=== PATIENT | male | born 1950 | race Caucasian/White ===

== ENCOUNTER 2017-02-10 16:17 | Emergency (ER) | payer MEDICARE, OTHER ==
[~2017-02-10] VITALS: Ht 170.2 cm; Wt 142.4 kg
[~2017-02-10 16:17] MED LIST: ALBU2.5V2 INH; ASPI81TA2 PO; CALC667T5 PO; LEVO300T8 PO; MAGN400T6 PO; METO50TA5 PO; NEOM28OI18 TOP; NITR0.4T28 SL; TRAM50TA4 PO
[2017-02-10 16:19] VITALS: Ht 170.2 cm; Wt 142.4 kg
--- OUTSIDE RECORDS SUMMARY | 2017-02-10 16:21 | XMS REPORT | Continuity of Care Document ---
Author Author [facility] Organization [facility] Address Unknown Phone Unavailable Support Name Relationship Address Phone CHRISTIRUBY MENDOZA Caregiver [address] [place] [address] KIZZY WATKINS MD Caregiver [address] [place] [phone] CHRISTINE CARTY MD Caregiver [address] [place] [address] DESIREE LACKEY Next Of Kin [address] [place] [address] CP Insurance Providers Payer Name Policy Number Subscriber Name Relationship Medicareadvantra Ppo [id number] Preethi Lackey 19 Self Advance Directives Directive Response Recorded Date/Time Advanced Directives Type DPOA for Healthcare 03/29/14 8:42am Ordered Resuscitation Status Full Code 02/05/14 8:42pm Resuscitation Documents on File No 03/29/14 8:42am Chief Complaint and Reason for Visit Chief Complaint DX PNEUMONIA, SEPESIS, Reason for Visit Hypoxia Sepsis Abdominal pain Pneumonia Diabetes Colon cancer Pickwickian syndrome Chronic respiratory failure Peripheral neuropathy Hypertension ASCVD (arteriosclerotic cardiovascular disease) Acute renal insufficiency Ileocolic anastomotic leak Stasis dermatitis of both legs Morbid obesity with BMI of 50.0-59.9, adult Hypothyroidism Physical debility ANTIONETTE on CPAP S/P exploratory laparotomy Dyslipidemia COPD (chronic obstructive pulmonary disease) CKD (chronic kidney disease), stage II Morbid obesity with BMI of 45.0-49.9, adult Hypokalemia Debility Problems Medical Problems Problem Onset Date Status ELEVATED LIVER ENZYMES Unknown Active ELEVATED TROPONIN Unknown Active EXACERBATION OF COPD Unknown Active Elevated levels of transaminase & lactic acid dehydrogenase Unknown Active Hypoxia Unknown Active GI bleed Unknown Active Abdominal pain Unknown Active Hypoxia Unknown Active Sepsis ~03/2014 Active Abdominal pain ~03/2014 Active Pneumonia ~03/2014 Active Diabetes Unknown Active Colon cancer Unknown Active Pickwickian syndrome Unknown Active Chronic respiratory failure Unknown Active Peripheral neuropathy Unknown Active Hypertension Unknown Active ASCVD (arteriosclerotic cardiovascular disease) Unknown Active Acute renal insufficiency ~03/2014 Resolved Ileocolic anastomotic leak Unknown Active Stasis dermatitis of both legs Unknown Active Morbid obesity with BMI of 50.0-59.9, adult Unknown Active Hypothyroidism Unknown Active Physical debility Unknown Active ANTIONETTE on CPAP Unknown Active Dyslipidemia Unknown Active COPD (chronic obstructive pulmonary disease) Unknown Active CKD (chronic kidney disease), stage II Unknown Active Morbid obesity with BMI of 45.0-49.9, adult Unknown Active Hypokalemia Unknown Resolved Debility Unknown Active Surgical Problems Problem Onset Date Recorded Date/Time Status S/P exploratory laparotomy Unknown 04/27/2014 9:20am Active Medications Medication Dose Route Sig Days/Qty Instructions Order Date Discontinued Date Status [Actose] 03/07/09 10/01/09 Discontinued Potassium Chloride 20 PO DAILY 06/11/10 09/13/10 Discontinued [Simvastatin] 03/07/09 10/01/09 Discontinued [Thyroid] 03/07/09 10/01/09 Discontinued Metoprolol Succinate 25 Mg PO TWICE A DAY 1.5 tabs po qd 06/11/1014/07 Discontinued [Zocor] 03/07/09 10/01/09 Discontinued Pioglitazone HCl 1 Tab PO DAILY 06/11/10 09/13/10 Discontinued Simvastatin 1 Tab PO DAILY 06/11/10 09/13/10 Discontinued Levothyroxine Sodium 300 Mcg PO DAILY 06/11/10 09/13/10 Discontinued Furosemide 1 Tab PO DAILY 06/11/10 09/13/10 Discontinued Sertraline Hcl 50 Mg PO DAILY 10/04/09 06/11/10 Discontinued Ciprofloxacin Hcl 500 Mg PO TWICE A DAY 10/04/09 06/11/10 Discontinued Clindamycin Hcl 300 Mg PO FOUR TIMES DAILY 10/04/09 06/11/10 Discontinued Lisinopril 1 Tab PO DAILY 06/11/10 09/13/10 Discontinued Sertraline Hcl 100 Mg PO DAILY 06/11/10 09/13/10 Discontinued Levothyroxine Sodium 1 Tab PO DAILY 09/13/10 01/22/11 Discontinued Citalopram Hydrobromide 1 Tab PO DAILY 09/13/10 04/11/11 Discontinued Potassium Chloride 1 Tab PO DAILY 09/13/10 04/11/11 Discontinued Nitroglycerin 1 Tab SL NEEDED 09/13/10 Active Metoprolol Succinate 200 Mg PO DAILY 09/13/10 Active Aspirin 325 Mg PO DAILY 09/13/10 Active Lisinopril 20 Mg PO DAILY 09/13/10 04/30/14 Discontinued Furosemide 40 Mg PO DAILY 09/13/10 Active Pioglitazone HCl 30 Mg PO DAILY 09/13/10 10/23/11 Discontinued Levothyroxine Sodium 50 Mcg PO DAILY 01/22/11 04/11/11 Discontinued [Trilipix 135MG] 1 Cap PO DAILY 01/22/11 Active Levothyroxine Sodium 250 Mcg PO DAILY 04/11/11 Active Citalopram Hydrobromide 40 Mg PO DAILY 04/11/11 10/23/11 Discontinued Metformin Hcl 1,000 Mg PO DAILY 10/23/11 04/30/14 Discontinued Glimepiride 4 Mg PO DAILY 10/23/11 03/03/13 Discontinued Potassium Chloride 20 Meq PO DAILY 03/29/14 04/30/14 Discontinued Hydrocodone Bit/Acetaminophen 1 Tab PO EVERY 3-4 HOURS 04/10/14 Active Social History Social History Problem Response Recorded Date/Time Smoking Status Former smoker 03/29/2014 8:52am When did patient START smoking? Started at approx. age 20. 04/10/2014 6:28am When did patient STOP smoking? 04/23/2001 04/10/2014 6:28am Chewing Tobacco Status No 03/25/2014 2:04pm Hx Substance Use No 04/10/2014 2:10am Hx Alcohol Use No 04/10/2014 2:10am Has the pt used tobacco in the last 12 months No 04/10/2014 6:28am Query Response Start Date Stop Date Smoking Status Former smoker Hospital Discharge Instructions Instructions: Care Instructions: Reason for Hospitalization: Sepsis I was in the hospital because (patient own words): "MY SURGERY I HAD" Discharge Diet: Low sodium - up to 2 quart fluid a day Discharge Activity: As tolerated, walker for assitance Follow Up Appointments: Dr Burgess next week for staple removal Dr Watkins in 1 week - Check BMP in light of meds Patient Instructions: See ostomy instuctions Condition at time of discharge: Good Care Plan Discharge Patient: Goal: Understand discharge plan Patient Instructions: see patient instructions Good Care Plan Discharge Patient: Goal: Other Understand discharge plan Patient Instructions: see patient instructions 2.If this dressing starts peeling up slightly, it may be reinforced, if it peels excessively, notify your surgeon's office. 3.You may shower with the dressing in place, but do not submerge in water 4.Do not allow water to seep under the dressing, if it should seep under, remove the dressing and notify your surgeon. Notify Physician If: Call your Surgeon if you have: 1.Chest pain, difficulty breathing, fever>100.5 degrees, chills, heart rate >100, confusion, or persistent nausea/vomitting. 2.Severe pain, swelling, redness, or warmth in either of your legs. 3.During office hours, call [phone] 4. After hours, please call [facility] at [phone], and have the chop saw operator page your Surgeon IN THE EVENT OF AN EMERGENCY, seek medical care at the nearest Emergency Room Condition at time of discharge: Good Care Plan Discharge Patient: Goal: Understand discharge plan Patient Instructions: see patient instructions Plan of Care Discharge Date 04/30/14 7:15pm Disposition 01 DISCHARGED HOME, SELF-CARE Instructions/Education Provided How to Care for Your Colostomy or Ileostomy DI for Pneumonia -- Adult Prescriptions See Medications Section Functional Status Query Response Date Recorded Physical Hygiene Self April 30, 2014 4:47pm Disabilities Visual April 30, 2014 4:47pm Devices Used Glasses April 30, 2014 4:47pm Dressing Self April 30, 2014 4:47pm Ambulation Self April 30, 2014 4:47pm Diet Self April 30, 2014 4:47pm Mental Status Alert April 30, 2014 4:47pm Disabilities Visual April 30, 2014 4:47pm Devices Used Glasses April 30, 2014 4:47pm Physical Hygiene Self April 30, 2014 4:47pm Dressing Self April 30, 2014 4:47pm Ambulation Self April 30, 2014 4:47pm Diet Self April 30, 2014 4:47pm Allergies, Adverse Reactions, Alerts Allergen Type Severity Reaction Status Last Updated No Known Drug Allergies Allergy Unknown Active 04/10/14 Immunizations Name Given Type Hx Influenza Vaccination Y Jun 2013 Historical Hx Pneumococcal Vaccination Y 2010 Historical Hx Influenza Vaccination Y Jun 2013 Historical Vital Signs Acute Vital Signs Vital Response Date/Time Temperature (Fahrenheit) 96.8 deg F (96.8 - 99.1) Temperature (Calculated Celsius) 36.13709 degrees C (36.0 - 37.3) Temperature Source Oral Pulse Rate (adult) 95 bpm (60 - 100) Respiratory Rate 20 breaths/min (10 - 20) O2 Sat by Pulse Oximetry 92 % (90 - 100) Oxygen Flow Rate 3.50 L/min Blood Pressure 123/76 mm Hg Blood Pressure Source Automatic Cuff Height 5 ft 8 in Weight 331 lb Body Mass Index 50.0 kg/m^2 Results Test Source Date Result Interp. Ref. Range Comments Acetone Level October 01, 2009 3:20pm Negative - Activated Partial Thromboplast Time July 11, 2013 7:07pm 31.9 SEC N 24-36 Alanine Aminotransferase (ALT/SGPT) April 27, 2014 4:36am 28 U/L N 21- 72 Albumin April 27, 2014 4:36am 3.5 G/DL N 3.5-5.0 Albumin/Globulin Ratio April 27, 2014 4:36am 0.9 RATIO L 1.1-2.2 Alkaline Phosphatase April 27, 2014 4:36am 139 U/L H 38-126 Anion Gap April 30, 2014 5:00am 11 MEQ/L N 5-15 Anisocytosis February 09, 2014 4:25am 1+ - Arterial Blood Base Excess April 24, 2014 3:35pm 3.7 MMOL/L H -2.0-2.0 Arterial Blood HCO3 April 24, 2014 3:35pm 29 MEQ/L H 22-26 Arterial Blood Oxygen Content March 03, 2013 10:10am 15 - Arterial Blood Oxygen Saturation April 24, 2014 3:35pm 89.0 % L 95.0- 98.0 Arterial Blood Partial Pressure CO2 April 24, 2014 3:35pm 43 MMHG N 34- 45 Arterial Blood Total CO2 April 24, 2014 3:35pm 29.8 MEQ/L H 23-27 Arterial Blood pH April 24, 2014 3:35pm 7.430 N 7.350-7.450 Arterial Blood pO2 at Patient Temp April 24, 2014 3:35pm 55 MMHG L 80- 100 Aspartate Amino Transf (AST/SGOT) April 27, 2014 4:36am 40 U/L N 17-59 B-Type Natriuretic Peptide February 03, 2011 9:30am 28 PG/ML N 15-100 BUN/Creatinine Ratio April 30, 2014 5:00am 18 RATIO N 6-26 Band Neutrophils # April 30, 2014 5:00am 1.1 T/MM3 - Band Neutrophils % April 30, 2014 5:00am 9.0 % H 0-6 Basophils # (Auto) April 30, 2014 5:00am - Basophils # (Manual) April 17, 2014 4:25am 0.1 T/MM3 N 0-0.2 Basophils % (Manual) April 17, 2014 4:25am 1.0 % N 0-2 Basophils (%) (Auto) April 30, 2014 5:00am - Blood Gas Oxygen Percent Given April 24, 2014 3:35pm 60 - Blood Gas Oxygen Saturation October 03, 2009 4:40am 80.0 % L 95.0-98.0 Is the patient on room air? NIs the patient on the ventilator? N What is the Source? (Liters or Percent) BPAP, LITERS Liters? Y How many Liters? 6 Percent oxygen? N Blood Gas Tidal Volume June 22, 2010 6:02am Not Performed 0-1200 Blood Gas Vent Rate June 22, 2010 6:02am Not Performed 0-30 Blood Urea Nitrogen April 30, 2014 5:00am 29.0 MG/DL H 9-20 C. difficile Toxin B Gene (PCR) June 19, 2010 8:58pm Negative - If Toxin A is clinically indicated, treat accordingly. Calcium Level April 30, 2014 5:00am 9.0 MG/DL N 8.4-10.2 Calculated Osmolality April 30, 2014 5:00am 264 MOSM/KG N 261-280 Carbon Dioxide Level April 30, 2014 5:00am 28 MEQ/L N 22-30 Carcinoembryonic Antigen March 29, 2014 8:39am 1.73 UG/L N 0-3.0 ADD-ON TESTING FROM THIS MORNING/[facility] Chemistry Specimen Hemolysis April 30, 2014 5:00am < 15 0-25 0-25: No Hemolysis.26-70: Slight Hemolysis - can falsely elevate K and Urine Protein. 71-285: Moderate Hemolysis - can falsely elevate K, Troponin I, CA 19-9, PTH, CSF GLucose, and Urine Protein, and can falsely decrease Phenytoin. 286-999: Gross Hemolysis - can falsely elevate K, Troponin I, CA 19-9, PTH, CSF Glucose, and Urine Protine, and can falsely decrease Phenytoin. Recommend specimen recollection. Chloride Level April 30, 2014 5:00am 95 MEQ/L L 98-107 Cholesterol Level June 13, 2010 5:15am 140 MG/DL N 132-199 Cholesterol/HDL Ratio June 13, 2010 5:15am 7.8 RATIO H 0-5.0 Conjugated Bilirubin October 23, 2011 3:20pm 0.00 MG/DL N 0.00-0.30 Corrected White Blood Count April 23, 2014 5:30am --- 04/23/14 0707 --- CWBC previously reported as: [id number] H T/MM3 4.5-11.0 Creatine Kinase MB September 15, 2010 8:50am 0.8 NG/ML N 0-3.4 Creatinine April 30, 2014 5:00am 1.6 MG/DL DH 0.8-1.5 D-Dimer July 11, 2013 7:06pm 721 NG/ML H 0-230 <224 NG/ML= PRESUMPTIVE NEGATIVE FOR PE OR DVT>224 NG/ML=ADDITIONAL EVALUATION FOR PE OR DVT RECOMMENDED Differential Total Cells Counted January 29, 2011 5:30am 100 % - EKG October 01, 2009 3:15pm Complete - Eosinophils # (Auto) April 30, 2014 5:00am - Eosinophils # (Manual) April 30, 2014 5:00am 0.2 T/MM3 N 0-0.5 Eosinophils % (Manual) April 30, 2014 5:00am 2.0 % N 0-4 Eosinophils (%) (Auto) April 30, 2014 5:00am - Ferritin February 05, 2014 7:56pm 13.8 NG/ML L 18-464 COMMENT may use blood in lab Free Thyroxine October 23, 2011 3:20pm 1.12 NG/DL N 0.78-2.19 Free Triiodothyronine October 01, 2009 3:20pm 0.81 PG/ML L 2.77-5.27 Gentamicin Level Peak April 27, 2014 2:55pm 8.9 UG/ML N 5-12 Gentamicin Level Trough April 28, 2014 2:24pm 1.1 UG/ML N 0-2 Globulin April 27, 2014 4:36am 3.9 G/DL H 2.4-3.6 Glomerular Filtration Rate Calc April 30, 2014 5:00am 44 - Glucometer April 27, 2014 5:47am 87 mg/dL N 75-110 Glucose Level April 30, 2014 5:00am 97 MG/DL N 75-110 HDL Cholesterol Direct June 13, 2010 5:15am 18 MG/DL L 40-60 Hematocrit April 30, 2014 5:00am 38.1 % L 41-53 Hemoglobin April 30, 2014 5:00am 12.0 GM/DL L 13.5-17.5 Hemoglobin A1c July 12, 2013 5:45am 5.8 % DL 6-7 <6.0 NON-DIABETIC RANGE6.0-7.0 ADA THERAPEUTIC RANGE >7.0 ACTION SUGGESTED Hypochromasia February 09, 2014 4:25am 1+ - Icterus Index April 30, 2014 5:00am < 2 0-7 Immature Granulocyte # (Auto) April 30, 2014 5:00am - Immature Granulocyte % (Auto) April 30, 2014 5:00am - Influenza Type A Antigen July 11, 2013 7:07pm Negative - Negative for Flu A protein antigen. Assay sensitivity isbetween 65-83%. A negative result does not exclude influenza virus infection. "Influenza FA" may be ordered if clinical presentation warrants confirmatory testing. Influenza Type B Antigen July 11, 2013 7:07pm Negative - Negative for Flu B protein antigen. Assay sensitivity isbetween 65-83%. A negative result does not exclude influenza virus infection. "Influenza FA" may be ordered if clinical presentation warrants confirmatory testing. Iron Level February 05, 2014 7:56pm 26 UG/DL L 49-181 COMMENT may use blood in lab LDL Cholesterol, Calculated June 13, 2010 5:15am 98.0 N 66-159 Lab Scanned Report March 29, 2014 6:57pm LAB TEST FORM REQUEST [id number] - Lactic Acid Level October 02, 2009 4:40am Send out - Large Platelets July 21, 2013 5:05am Many - Lipase April 10, 2014 2:30am 34 U/L N 23-300 Lymphocytes # (Auto) April 30, 2014 5:00am - Lymphocytes # (Manual) April 30, 2014 5:00am 3.2 T/MM3 N 1-4.8 Lymphocytes % (Manual) April 30, 2014 5:00am 26.0 % N 23-45 Lymphocytes (%) (Auto) April 30, 2014 5:00am - Magnesium Level April 27, 2014 4:36am 1.6 MG/DL N 1.6-2.3 Mean Corpuscular Hemoglobin April 30, 2014 5:00am 25.7 UUG L 26-34 Mean Corpuscular Hemoglobin Concent April 30, 2014 5:00am 31.5 GM/DL N 31-37 Mean Corpuscular Volume April 30, 2014 5:00am 81.6 UM3 N 80-100 Mean Platelet Volume April 30, 2014 5:00am 10.6 UM3 N 9.4-12.4 Metamyelocytes # April 28, 2014 4:25am 0.2 T/MM3 - Metamyelocytes % April 28, 2014 4:25am 2.0 % H 0-0 Microcytosis July 21, 2013 5:05am 1+ - Monocytes # (Auto) April 30, 2014 5:00am - Monocytes # (Manual) April 30, 2014 5:00am 0.7 T/MM3 N 0-0.8 Monocytes % (Manual) April 30, 2014 5:00am 6.0 % N 0-9.0 Monocytes (%) (Auto) April 30, 2014 5:00am - Myelocytes # July 21, 2013 5:05am 0.1 T/MM3 - Myelocytes % July 21, 2013 5:05am 1.0 % H 0-0 Myoglobin October 05, 2009 4:40am 130.6 NG/ML H 0-121 YO-Ecu-L-Type Natriuretic Peptide April 11, 2014 4:50am 1150 PG/ML H 0- 175 Rule in cut points: <50 years old=450; 50-75 years old=900; >75 years old=1800; When utilizing ProBNP rule-in cut points, adjustment for impaired renal function is typically not required. Neutrophils # (Auto) April 30, 2014 5:00am - Neutrophils # (Manual) April 30, 2014 5:00am 6.9 T/MM3 N 1.8-7.7 Neutrophils % (Manual) April 30, 2014 5:00am 56.0 % N 33-66 Neutrophils (%) (Auto) April 30, 2014 5:00am - Nucleated Red Blood Cells January 29, 2011 5:30am 2 - Oxygen Delivery Method (LAB) April 24, 2014 3:35pm Venturi mask, % - Phosphorus Level April 19, 2014 4:40am 3.0 MG/DL N 2.5-4.5 Platelet Count April 30, 2014 5:00am 266 T/MM3 N 130-400 Poikilocytosis September 13, 2010 5:44pm 4+ - Potassium Level April 30, 2014 5:00am 5.0 MEQ/L N 3.6-5 Prealbumin February 05, 2014 7:56pm 10.0 MG/DL L 17.6-36.0 COMMENT may use blood in lab Procalcitonin April 15, 2014 4:15am < 0.05 NG/ML - PCT </=0.5 ng/mL - sepsis not likely;PCT >0.5 and </=2 ng/mL - sepsis possible; PCT >2 ng/mL - sepsis likely; PCT >/=10 ng/mL - systemic inflammatory response - sepsis or septic shock highly indicated. Prothromb Time International Ratio July 11, 2013 7:07pm 1.35 H 0.86- 1.10 THERAPUTIC RANGE=2.00-3.00 FOR ANTI-THROMBOSIS THERAPUTIC RANGE=2.50- 3.50 FOR IMPLANTED VALVE RDW Standard Deviation April 30, 2014 5:00am 55.6 FL H 36.9-50.2 Reactive Lymphocytes # April 30, 2014 5:00am 0.1 T/MM3 H 0-0 Reactive Lymphocytes % April 30, 2014 5:00am 1.0 % DH 0-0 Red Blood Count April 30, 2014 5:00am 4.67 M/MM3 N 4.50-5.90 Sodium Level April 30, 2014 5:00am 134 MEQ/L N 134-144 Stomatocytes September 13, 2010 5:44pm 4+ - Stool Occult Blood September 22, 2010 8:45pm Negative - Has specimen been collected/obtained? Y Tests Not Done March 07, 2009 7:54pm Not done - COMMENT DO C&S IF INDICATEDHas specimen been collected/obtained? Y Thyroid Stimulating Hormone (TSH) April 10, 2014 2:30am 1.81 MIU/L N 0.47 -4.68 Total Bilirubin April 27, 2014 4:36am 0.40 MG/DL N 0.20-1.30 Total Creatine Kinase October 11, 2009 6:00am 143 U/L N 55-170 Total Protein April 27, 2014 4:36am 7.4 G/DL N 6.3-8.2 Total Triiodothyronine October 30, 2008 3:10pm 0.62 NG/ML L 0.97-1.69 Triglycerides Level June 13, 2010 5:15am 120 MG/DL N 40-160 Troponin I April 10, 2014 2:30am < 0.012 ng/ml 0-0.12 Turbidity April 30, 2014 5:00am < 20 0-20 U Collection Dur (Immunofixation) February 17, 2013 2:07pm Random Hr - Protein electrophoresis, Urine performed at [facility] Reference Lab, [address] [place] [id number] Damage Adjuster Bj Ware MD U Collection Volume (Immunofixation February 17, 2013 2:07pm Random mL - Unconjugated Bilirubin October 23, 2011 3:20pm 0.00 MG/DL N 0.00-1.10 Urinalysis Comment April 10, 2014 4:40am Microscopic not ind. - Has specimen been collected/obtained? Y Urine Albumin (%) February 17, 2013 2:07pm 45.8 % - Urine Pyqlf-6-Xupxmjmx February 17, 2013 2:07pm 4.5 % - Urine Ywblx-5-Vycrapyye February 17, 2013 2:07pm 12.3 % - Urine Amorphous Phosphates October 01, 2009 3:45pm Many - Has specimen been collected/obtained? Y Urine Amorphous Urates February 06, 2014 5:04am Few - Has specimen been collected/obtained? Y Urine Bacteria February 06, 2014 5:04am None seen - Has specimen been collected/obtained? Y Urine Beta Globulin February 17, 2013 2:07pm 7.2 % - Urine Bilirubin April 10, 2014 4:40am Negative - Has specimen been collected/obtained? Y Urine Blood April 10, 2014 4:40am Negative - Has specimen been collected/obtained? Y Urine Calcium Oxalate Crystals March 03, 2013 2:48pm Many - Has specimen been collected/obtained? Y Urine Collection Type April 10, 2014 4:40am Voided-not cc-midstr - Has specimen been collected/obtained? Y Urine Color April 10, 2014 4:40am Yellow - Has specimen been collected /obtained? Y Urine Comment February 17, 2013 2:07pm see below - Mild non-selective proteinuria. Urine Culture Indicated March 03, 2013 2:48pm Cult reflexed &setup - Has specimen been collected/obtained? Y Urine Fine Granular Casts October 01, 2009 3:45pm 1-3 /LPF - Has specimen been collected/obtained? Y Urine Gamma Globulin February 17, 2013 2:07pm 30.2 % - Urine Glucose (UA) April 10, 2014 4:40am Negative - Has specimen been collected/obtained? Y Urine Hyaline Casts March 03, 2013 2:48pm 0-1 /LPF - Has specimen been collected/obtained? Y Urine Ketones April 10, 2014 4:40am Negative - Has specimen been collected/obtained? Y Urine Leukocyte Esterase April 10, 2014 4:40am Negative - Has specimen been collected/obtained? Y Urine Microscopic Not Indicated October 24, 2011 2:10am Not indicated - Has specimen been collected/obtained? Y Urine Mucus February 17, 2013 2:07pm Present - Urine Myoglobin October 02, 2009 12:45pm Send out - Has specimen been collected/obtained? YWhat is the Source? [place] Urine Nitrite April 10, 2014 4:40am Negative - Has specimen been collected/obtained? Y Urine Protein April 10, 2014 4:40am Negative - Has specimen been collected/obtained? Y Urine RBC February 06, 2014 5:04am 1-3 /HPF - Has specimen been collected/ obtained? Y Urine Specific [place] April 10, 2014 4:40am 1.025 - Has specimen been collected/obtained? Y Urine Squamous Epithelial Cells February 17, 2013 2:07pm Few - Urine Total Protein February 17, 2013 2:07pm 36 mg/dL H - Protein electrophoresis, Urine performed at [facility] Reference Lab, [address] [place] [id number] Damage Adjuster Bj Ware MD Urine Total Protein Timed February 17, 2013 2:07pm Na mg/24hrs - Value may increase up to 300mg/24hour following exercise.Reported as mg/hrs collected , reference range is based on 24 hr collection. Urine Triple Phosphate Crystals March 03, 2013 2:48pm Many - Has specimen been collected/obtained? Y Urine Turbidity April 10, 2014 4:40am Clear - Has specimen been collected/obtained? Y Urine Uric Acid Crystals March 03, 2013 2:48pm Not Performed - Urine Urobilinogen April 10, 2014 4:40am 0.2 EU/DL - Has specimen been collected/obtained? Y Urine WBC March 03, 2013 2:48pm 3-5 /HPF - Has specimen been collected /obtained? Y Urine WBC Clumps March 03, 2013 2:48pm Few - Has specimen been collected/obtained? Y Urine Waxy Casts March 03, 2013 2:48pm 0-1 /LPF - Has specimen been collected/obtained? Y Urine pH April 10, 2014 4:40am 5.5 - Has specimen been collected/ obtained? Y VLDL Cholesterol June 13, 2010 5:15am 24.0 MG/DL N 0-28 Vancomycin Level Peak January 31, 2011 12:05pm 29.49 UG/ML L 30-80 Vancomycin Level Trough March 05, 2013 5:45am 28.38 UG/ML H 15-20 Venous Blood Base Excess October 01, 2009 3:20pm 9.9 MMOL/L H -2.0-2.0 Is the patient on room air? YWhat is the Source? (Liters or Percent) ROOM AIR Venous Blood HCO3 October 01, 2009 3:20pm 38 MEQ/L H 22-26 Is the patient on room air? YWhat is the Source? (Liters or Percent) ROOM AIR Venous Blood Lactate April 15, 2014 4:15am 1.0 MMOL/L N 0.6-2.2 Venous Blood Oxygen Content October 01, 2009 3:20pm Not Performed - Venous Blood Oxygen Saturation October 01, 2009 3:20pm 58.0 % - Is the patient on room air? YWhat is the Source? (Liters or Percent) ROOM AIR Venous Blood Partial Pressure CO2 October 01, 2009 3:20pm 69 MMHG H 40- 52 Is the patient on room air? YWhat is the Source? (Liters or Percent) ROOM AIR Venous Blood Partial Pressure O2 October 01, 2009 3:20pm 32 MMHG L 40- 52 Is the patient on room air? YWhat is the Source? (Liters or Percent) ROOM AIR Venous Blood Total Carbon Dioxide October 01, 2009 3:20pm 40.2 MEQ/L - Is the patient on room air? YWhat is the Source? (Liters or Percent) ROOM AIR Venous Blood pH October 01, 2009 3:20pm 7.350 N 7.31-7.41 Is the patient on room air? YWhat is the Source? (Liters or Percent) ROOM AIR Vitamin B12 Level February 05, 2014 7:56pm 447 PG/ML N 239-931 COMMENT may use blood in lab White Blood Count April 30, 2014 5:00am 12.3 T/MM3 H 4.5-11.0 Blood Culture Blood April 10, 2014 2:30am NO GROWTH AFTER 5 DAYS Gram Stain Drainage-Other January 28, 2011 10:00am Gram Stain Tracheostomy Tube March 03, 2013 10:35am Gram Stain Sputum-Endotracheal Wash April 10, 2014 3:15am Gram Stain Peritoneum April 13, 2014 6:46pm Urine Culture Urine, [place] March 03, 2013 3:24pm Gram Stain Skin March 03, 2013 11:41am Name: PREETHI LACKEY Unit #: [id number] : [id number] Sex: M Loc / Svc: MED DOS: 04/10/14 Signed Report #: [id number] DIAGNOSTIC IMAGING REPORT TYPE OF EXAM: CHEST 1 VIEW Dictated By: PERLA CHAU MD INDICATION: ITS.REASON: f/u CHEST 1 VIEW: Comparison: April 16, 2014 Findings: Tracheostomy tube in place. Right-sided port catheter. Lungs appear grossly stable. There may be slight improvement in aeration of the right lower lobe. No new infiltrates. No pneumothorax or significant pleural fluid. Heart size and mediastinal contours are unchanged. Impression: Slight improvement in right lower lobe infiltrate. No new consolidation. . Procedures Procedure Status Date Provider(s) INSERT TUNNELED CV CATH completed 03/29/14 SRAVANTHI BURGESS MD, FACS, CWS THER/PROPH/DIAG INJ IV PUSH completed 04/08/14 TX/PRO/DX INJ NEW DRUG ADDON completed 04/08/14 Exploratory laparotomy completed 04/13/14 SRAVANTHI BURGESS MD, FACS, CWS Encounters Encounter Location Date/Time Discharged Inpatient [facility] 04/10/14 5:59am Departed Emergency Room [facility] 04/08/14 10:19pm Registered Clinic [facility] 03/29/14 2:43pm Discharged Inpatient [facility] 02/05/14 8:40pm Recent Diagnosis Hypoxia Sepsis Abdominal pain Pneumonia Diabetes Colon cancer Pickwickian syndrome Chronic respiratory failure Peripheral neuropathy Hypertension ASCVD (arteriosclerotic cardiovascular disease) Acute renal insufficiency Ileocolic anastomotic leak Stasis dermatitis of both legs Morbid obesity with BMI of 50.0-59.9, adult Hypothyroidism Physical debility AN[place]IONETTE on CPAP Dyslipidemia COPD (chronic obstructive pulmonary disease) CKD (chronic kidney disease), stage II Morbid obesity with BMI of 45.0-49.9, adult Hypokalemia Debility
--- OUTSIDE RECORDS SUMMARY | 2017-02-10 16:22 | XMS REPORT | Continuity of Care Document ---
Author Author [facility] Organization [facility] Address Unknown Phone Unavailable Allergies Active Description Code Type Severity Reaction Onset Reported/Identified Relationship to Patient Clinical Status Yes No Known Allergies NKMA N/A N/A 02/24/2014 Yes No Known Allergies NKMA N/A N/A 02/24/2014 Medications Medication Packaging Start Date Stop Date Route Dosage Sig levothyroxine(Synthroid 200 mcg (0.2 mg) oral tablet) 1 tabs 02/24/2014 03/11/2014 Oral 200 mcg 1 tabs, Oral, Daily, 30 tabs nitroglycerin(nitroglycerin 0.4 mg sublingual tablet) 1 tabs 02/24/2014 05/21/2016 SubLingual 0.4 mg 0.4 mg=1 tabs, SubLingual, q5min, x 3 doses not to exceed 3 doses/15 min--if pain persists, seek medical attention, PRN: as needed for chest pain, 0 Refill(s) fenofibric acid(Trilipix 135 mg oral delayed release capsule) 1 caps 201303/11/2014 Oral 135 mg 1 caps, Oral, Daily, 30 caps metoprolol(Toprol-XL 100 mg oral tablet, extended release) 2 tabs 02/24/2014 06/25/2014 Oral 200 mg 2 tabs, Oral, Daily, 30 tabs furosemide(Lasix 40 mg oral tablet) 1 tabs 02/24/20142013 Oral 40 mg 1 tabs, Oral, Daily, 30 tabs metFORMIN(metFORMIN 500 mg oral tablet) 2 tabs 02/24/201407/30 Oral 1,000 mg 2 tabs, Oral, Daily, 60 tabs lisinopril(lisinopril 10 mg oral tablet) 2 tabs 02/24/201403/2014 Oral 20 mg 2 tabs, Oral, Daily, 30 tabs potassium chloride(potassium chloride 20 mEq oral tablet, extended release) 1 tabs 02/24/2014 07/30/2014 Oral 20 mEq 1 tabs, Oral, Daily, 60 tabs omeprazole(omeprazole 20 mg oral delayed release tablet) 1 tabs 02/24/2014 05/04/2014 Oral 20 mg 1 tabs, Oral, Daily HYDROcodone-acetaminophen(Harrington 5 mg-325 mg oral tablet) 1 tabs 05/04/2014 09/27/2015 Oral 1 tabs, Oral, q3hr, PRN: Pain Moderate (4-6), 0 Refill(s) levothyroxine(Synthroid 200 mcg (0.2 mg) oral tablet) 06/25/2014 08/27/2014 See Instructions, 1 tabs Oral Daily, 30 tabs fenofibric acid(Trilipix 135 mg oral delayed release capsule) 06/25/2014 09/21/2015 See Instructions, 1 caps Oral Daily, 30 caps furosemide(furosemide 40 mg oral tablet) 06/25/20142013 See Instructions, TAKE ONE TABLET BY MOUTH TWICE DAILY, 60 tabs metoprolol(metoprolol succinate 200 mg oral tablet, extended release) 1 tabs 07/30/2014 08/03/2014 Oral 200 mg 1 tabs, Oral, Daily, PRN: Hypertension/High Blood Pressure insulin lispro(insulin lispro HumaLOG sliding scale High) 07/30/2014 08/03/2014 SubCutaneous Sliding Scale High, SubCutaneous, As Indicated , PRN: Hyperglycemia/High Blood Sugar aspirin(aspirin) 1 tabs 07/30/2014 08/03/2014 Oral 81 mg 81 mg , Oral, Daily cefTRIAXone(Rocephin) 10 mL 07/30/2014 08/02/2014 IV Push 1 g 1 g , IV Push, q24hr ibuprofen(ibuprofen) 07/30/2014 09/27/2015 Oral 400 mg 400 mg, Oral, q6hr, PRN: Pain Mild (1-3), 0 Refill(s) aspirin(aspirin) 07/30/2014 09/27/2015 Oral 81 mg 81 mg, Oral , Daily, 0 Refill(s) prochlorperazine(prochlorperazine) 07/30/2014 Oral 10 mg 10 mg, Oral, q6hr, PRN: as needed for nausea/vomiting, 0 Refill(s) morphine(morphine) 0.5 mL 07/30/2014 08/03/2014 IV Push 1 mg 1 mg, IV Push, q2hr, PRN: Pain Severe (7-10) ondansetron(Zofran) 2 mL 07/30/2014 08/03/2014 IV Push 4 mg 4 mg, IV Push, q6hr, PRN: Nausea Sodium Chloride 0.9%(Sodium Chloride 0.9% 1000 mL) 1,000 mL 07/30/2014 08/02/2014 IV 80 mL/hr, IV polyethylene glycol 3350(MiraLax) 1 packets 07/30/20142013 Oral 17 g 17 g, Oral, Daily, PRN: Constipation calcium carbonate(Tums) 1 tabs 07/30/2014 08/03/2014 Oral 500 mg 500 mg, Oral, q4hr, PRN: GERD/Heartburn oxyCODONE(Roxicodone) 1 tabs 07/30/2014 08/03/2014 Oral 5 mg 5 mg , Oral, q4hr, PRN: Pain Moderate (4-6) diphenhydrAMINE(Benadryl) 1 tabs 07/30/2014 08/03/2014 Oral 25 mg 25 mg, Oral, q6hr, PRN: Pruritus/Itching acetaminophen(acetaminophen) 2 tabs 07/30/2014 08/03/2014 Oral 650 mg 650 mg, Oral, q4hr, PRN: Other (See Comment) zolpidem(Ambien) 1 tabs 07/30/2014 08/03/2014 Oral 5 mg 5 mg, Oral, Bedtime (once a day), PRN: Insomnia docusate-senna(Senokot S 50 mg-8.6 mg oral tablet) 1 tabs 07/30/2014 08/03/2014 Oral 1 tabs, Oral, Daily, PRN: Constipation ipratropium(ipratropium 500 mcg/2.5 mL inhalation solution ) 2.5 mL 07/30/2014 08/03/2014 NEB 0.5 mg 0.5 mg, 2.5 mL, NEB, q2hr (scheduled), PRN: Other (See Comment) albuterol(albuterol 5 mg/mL (0.5%) inhalation solution) 0.5 mL 07/30/2014 08/03/2014 NEB 2.5 mg 2.5 mg, 0.5 mL, NEB, q2hr (scheduled), PRN: Other (See Comment) prochlorperazine(prochlorperazine) 1 tabs 07/30/20142013 Oral 10 mg 10 mg, Oral, q6hr, PRN: Nausea or Vomiting HYDROcodone-acetaminophen(Harrington 5 mg-325 mg oral tablet) 1 tabs 07/30/2014 08/03/2014 Oral 1 tabs, Oral, q3hr, PRN: Pain Moderate (4-6) fenofibrate(fenofibrate 160 mg oral tablet) 1 tabs 07/30/2014 08/03/2014 Oral 160 mg 160 mg, 1 tabs, Oral, Daily levothyroxine(Synthroid) 2 tabs 07/30/2014 08/03/2014 Oral 200 mcg 200 mcg, Oral, Daily nitroglycerin(nitroglycerin 0.4 mg sublingual tablet) 1 tabs 07/30/2014 08/03/2014 SubLingual 0.4 mg 0.4 mg, 1 tabs, SubLingual, q5min, PRN: Angina/Chest Pain predniSONE(predniSONE) 1 tabs 08/01/2014 08/03/2014 Oral 10 mg 10 mg, Oral, Daily omeprazole(omeprazole) 1 caps 08/02/2014 08/03/2014 Oral 20 mg 20 mg, Oral, Daily heparin(heparin) 1 mL 08/02/2014 08/03/2014 SubCutaneous 5,000 units 5,000 units, SubCutaneous, q12hr (scheduled) magnesium sulfate(magnesium sulfate) 100 mL 08/02/20142013 IV Piggyback 4 g 4 g, 100 mL, 12.5 mL/hr, IV Piggyback, Once predniSONE(predniSONE 10 mg oral tablet) 1 tabs 08/03/201407/2014 Oral 10 mg 1 tabs, Oral, Daily, Follow up with Renal, 30 tabs magnesium oxide(magnesium oxide 420 mg oral tablet) 1 tabs 08/26/2014 11/12/2014 Oral 420 mg 1 tabs, Oral, BID, 60 tabs levothyroxine(Synthroid 200 mcg (0.2 mg) oral tablet) 08/27/2014 09/22/2015 See Instructions, 1 tabs Oral Daily, 30 tabs pneumococcal 13-valent conjugate vaccine(pneumococcal 13- valent conjugate vaccine) 0.5 mL 10/26/2014 10/26/2014 IntraMuscular 0.5 mL , IntraMuscular, Once levothyroxine(levothyroxine 50 mcg (0.05 mg) oral capsule) 1 caps 10/26/2014 10/26/2014 Oral 50 mcg 1 caps, Oral, Daily, 30 caps levothyroxine(levothyroxine 50 mcg (0.05 mg) oral capsule) 1 caps 10/26/2014 09/22/2015 Oral 50 mcg 1 caps, Oral, Daily, 30 caps metoprolol(metoprolol succinate 50 mg oral tablet, extended release) 1 tabs 11/12/2014 09/27/2015 Oral 50 mg 1 tabs, Oral, Daily, 30 tabs magnesium oxide(magnesium oxide 420 mg oral tablet) 11/12/2014 09/22/2015 See Instructions, 1 tabs Oral BID, 60 tabs pneumococcal 23-polyvalent vaccine(pneumococcal 23- polyvalent vaccine) 0.5 mL 09/21/2015 09/27/2015 IntraMuscular 0.5 mL, IntraMuscular , As Indicated magnesium oxide(magnesium oxide) 09/22/2015 04/12/2016 Oral 420 mg 420 mg, Oral, BID, 0 Refill(s) levothyroxine(levothyroxine) 09/22/2015 01/27/2016 Oral 250 mcg 250 mcg, Oral, Daily, 0 Refill(s) docusate(Colace) 1 caps 09/22/2015 09/22/2015 Oral 100 mg 100 mg=1 caps, Oral, BID, PRN: Other (See Comment) ondansetron(Zofran) 1 tabs 09/22/2015 09/27/2015 Oral 4 mg 4 mg=1 tabs, Oral, q6hr, PRN: Nausea glucagon(glucagon) 1 mL 09/22/2015 09/27/2015 IntraMuscular 1 mg 1 mg=1 mL, IntraMuscular, As Indicated, PRN: Hypoglycemia/Low Blood Sugar Sodium Chloride 0.9%(Sodium Chloride 0.9% 1,000 mL) 1,000 mL 09/22/2015 09/22/2015 IV 150 mL/hr, IV, Stop: 09/22/15 9:29:00 [employer] polyethylene glycol 3350(MiraLax) 1 packets 09/22/20152014 Oral 17 g 17 g=1 packets, Oral, Daily, PRN: Constipation Dextrose 50% in Water(Dextrose 50% in Water Injection) 25 mL 09/22/2015 09/27/2015 IV Push 12.5 g 12.5 g=25 mL, IV Push, q15min, PRN: Hypoglycemia/Low Blood Sugar Dextrose 10% in Water(Dextrose 10% in Water 250 mL) 250 mL 09/22/2015 09/27/2015 IV 50 mL/hr, IV acetaminophen(acetaminophen) 2 tabs 09/22/2015 09/27/2015 Oral 1,000 mg 1,000 mg=2 tabs, Oral, q6hr, PRN: Other (See Comment) docusate-senna(Senokot S 50 mg-8.6 mg oral tablet) 1 tabs 09/22/2015 09/27/2015 Oral 1 tabs, Oral, Daily, PRN: Constipation heparin(heparin) 1 mL 09/22/2015 09/27/2015 SubCutaneous 5,000 units 5,000 units=1 mL, SubCutaneous, q8hr (scheduled) piperacillin-tazobactam(Zosyn) 50 mL 09/22/2015 09/23/2015 IV Piggyback 2.25 g 2.25 g=50 mL, 100 mL/hr, IV Piggyback, q8hr (scheduled) vancomycin(vancomycin) 09/22/2015 09/22/2015 IV Piggyback 2.5 g 2.5 g, 200 mL/hr, IV Piggyback, Once HYDROcodone-acetaminophen(Harrington 5 mg-325 mg oral tablet) 1 tabs 09/22/2015 09/27/2015 Oral 1 tabs, Oral, q3hr, PRN: Pain Moderate (4-6) aspirin(aspirin) 1 tabs 09/22/2015 09/27/2015 Oral 81 mg 81 mg= 1 tabs, Oral, Daily magnesium oxide(magnesium oxide) 1 tabs 09/22/2015 09/27/2015 Oral 400 mg 400 mg=1 tabs, Oral, BID levothyroxine(levothyroxine) 2 tabs 09/22/2015 09/27/2015 Oral 250 mcg 250 mcg=2 tabs, Oral, Daily ipratropium(ipratropium 500 mcg/2.5 mL inhalation solution ) 2.5 mL 09/22/2015 09/27/2015 NEB 0.5 mg 0.5 mg=2.5 mL, NEB, q2hr, PRN: Bronchospasms albuterol(albuterol 5 mg/mL (0.5%) inhalation solution) 0.5 mL 09/22/2015 09/27/2015 NEB 2.5 mg 2.5 mg=0.5 mL, NEB, q2hr, PRN: Bronchospasms sterile water(sterile water diluent intravenous solution 850 mL + sodium bicarbonate IV additive 150 mEq) 850 mL 09/22/2015 09/22/2015 IV 200 mL/hr, IV, Stop: 09/22/15 8:35:00 [employer] sterile water(sterile water diluent intravenous solution 850 mL + sodium bicarbonate IV additive 150 mEq) 850 mL 09/22/2015 09/23/2015 IV 150 mL/hr, IV pantoprazole(pantoprazole) 1 tabs 09/22/2015 09/27/2015 Oral 40 mg 40 mg=1 tabs, Oral, Daily magnesium sulfate(magnesium sulfate) 50 mL 09/22/20152014 IV Piggyback 2 g 2 g=50 mL, 8.33 mL/hr, IV Piggyback, Once miconazole topical(miconazole 2% topical powder) 1 ernestina 09/22/2015 09/27/2015 Topical 1 ernestina, Topical, TID magnesium sulfate(magnesium sulfate) 100 mL 09/23/20152015 IV Piggyback 1 g 1 g=100 mL, 100 mL/hr, IV Piggyback, Once potassium chloride(potassium chloride 20 mEq oral tablet, extended release) 2 tabs 09/23/2015 09/23/2015 Oral 40 mEq 40 mEq=2 tabs, Oral, Once calcium acetate(calcium acetate) 2 caps 09/23/2015 09/27/2015 Oral 1,334 mg 1,334 mg=2 caps, Oral, TIDWM calcium gluconate(calcium gluconate) 20 mL 09/23/20152015 IV Piggyback 2,000 mg 2,000 mg=20 mL, 35 mL/hr, IV Piggyback, Once magnesium sulfate(magnesium sulfate) 50 mL 09/24/20152015 IV Piggyback 2 g 2 g=50 mL, 8.33 mL/hr, IV Piggyback, Once tamsulosin(tamsulosin) 1 caps 09/24/2015 09/27/2015 Oral 0.4 mg 0.4 mg=1 caps, Oral, Daily magnesium sulfate(magnesium sulfate) 50 mL 09/26/20152015 IV Piggyback 2 g 2 g=50 mL, 8.33 mL/hr, IV Piggyback, Once calcium acetate(calcium acetate 667 mg oral capsule) 2 caps 09/27/2015 Oral 1,334 mg 1,334 mg=2 caps, Oral, TIDWM, 0 Refill(s) aspirin(aspirin 81 mg oral tablet, chewable) 1 tabs 09/27/2015 Oral 81 mg 81 mg=1 tabs, Oral, Daily, 0 Refill(s) diphenoxylate-atropine(diphenoxylate-atropine 2.5 mg-0.025 mg oral tablet) 2 tabs 09/27/2015 01/23/2016 Oral 2 tabs, Oral, q4hr, PRN: Diarrhea/ Loose Stools, 0 Refill(s) ipratropium(ipratropium 500 mcg/2.5 mL inhalation solution ) 2.5 mL 09/27/2015 NEB 0.5 mg 0.5 mg=2.5 mL, NEB, TID, 0 Refill(s) miconazole topical(miconazole 2% topical powder) 1 ernestina 09/27/2015 Topical 1 ernestina, Topical, TID, 0 Refill(s) tamsulosin(tamsulosin 0.4 mg oral capsule) 1 caps 09/27/2015 Oral 0.4 mg 0.4 mg=1 caps, Oral, Daily, 0 Refill(s) pantoprazole(pantoprazole 40 mg oral delayed release tablet ) 1 tabs 09/27/2015 11/23/2015 Oral 40 mg 40 mg=1 tabs, Oral, Daily, 0 Refill(s) albuterol(albuterol 5 mg/mL (0.5%) inhalation solution) 0.5 mL 09/27/2015 05/21/2016 NEB 2.5 mg 2.5 mg=0.5 mL, NEB, TID, 0 Refill(s) HYDROcodone-acetaminophen(Harrington 5 mg-325 mg oral tablet) 1 tabs 09/27/2015 10/29/2015 Oral 1 tabs, Oral, q3hr, PRN: Pain Moderate (4-6), 30 tabs, 0 Refill(s) furosemide(Lasix) 2 mL 10/01/2015 10/01/2015 IV Push 20 mg 20 mg =2 mL, IV Push, Once acetaminophen(acetaminophen) 2 tabs 10/01/2015 10/01/2015 Oral 650 mg 650 mg=2 tabs, Oral, q4hr, PRN: Pain Mild (1-3) metoprolol(metoprolol tartrate 50 mg oral tablet) 1 tabs 11/23/2015 02/23/2016 Oral 50 mg 50 mg=1 tabs, Oral, Daily, 0 Refill(s) levothyroxine(Synthroid 200 mcg (0.2 mg) oral tablet) 01/27/2016 07/27/2016 See Instructions, Take 1/2 tab daily for 30 days, then take 1 tab daily., 45 tabs, 0 Refill(s) metoprolol(metoprolol tartrate 50 mg oral tablet) 1 tabs 02/23/2016 02/28/2016 Oral 50 mg 50 mg=1 tabs, Oral, Daily, for 90 days, 90 tabs, 0 Refill(s) magnesium oxide(magnesium oxide 420 mg oral tablet) 04/12/2016 Oral 420 mg 420 mg, Oral, BID, 180 tabs, 0 Refill(s) traMADol(traMADol 50 mg oral tablet) 1 tabs 05/21/20162015 Oral 50 mg 50 mg=1 tabs, Oral, q12hr, [employer], PRN: as needed for pain, 60 tabs, 0 Refill(s) nitroglycerin(nitroglycerin 0.4 mg sublingual tablet) 1 tabs 05/21/2016 SubLingual 0.4 mg 0.4 mg=1 tabs, SubLingual, q5min, x 3 doses not to exceed 3 doses/15 min--if pain persists, seek medical attention, PRN: as needed for chest pain, 100 tabs, 0 Refill(s) traMADol(traMADol 50 mg oral tablet) 1 tabs 07/26/2016 Oral 50 mg 50 mg=1 tabs, Oral, q12hr, [employer], PRN: as needed for pain, 60 tabs, 1 Refill(s) nystatin topical(nystatin 100,000 units/g topical ointment ) 1 ernestina 10/24/2016 Topical 1 ernestina, Topical, BID, 30 g, 1 Refill(s) fluconazole(Diflucan 100 mg oral tablet) 1 tabs 10/24/2016 Oral 100 mg 100 mg=1 tabs, Oral, Daily, 1 tabs, 0 Refill(s) Problems Date Dx Coded Attending Type Code Diagnosis Diagnosed By 10/15/2015 Jackie Vergara Final B37.2 Candidiasis of skin and nail 10/15/2015 Jackie Vergara Final E03.9 Hypothyroidism, unspecified 10/15/2015 Jackie Vergara Final E11.9 Type 2 diabetes mellitus without complications 10/15/2015 Jackie Vergara Final E66.01 Morbid (severe) obesity due to excess calories 10/15/2015 Jackie Vergara Final E66.2 Morbid (severe) obesity with alveolar hypoventilation 10/15/2015 Jackie Vergara Final E78.5 Hyperlipidemia, unspecified 10/15/2015 Jackie Vergara Final E86.0 Dehydration 10/15/2015 Jackie Vergara Final G47.33 Obstructive sleep apnea (adult) ( pediatric) 10/15/2015 Jackie Vergara Final I12.9 Hypertensive chronic kidney disease with stage 1 through stage 4 chronic ki 10/15/2015 Jackie Vergara Final I25.10 Atherosclerotic heart disease of [place] coronary artery without angina pect 10/15/2015 Jackie Vergara Final I50.9 Heart failure, unspecified 10/15/2015 Jackie Vergara Final I87.8 Other specified disorders of veins 10/15/2015 Jackie Vergara Final J44.9 Chronic obstructive pulmonary disease , unspecified 10/15/2015 Jackie Vergara Final J96.11 Chronic respiratory failure with hypoxia 10/15/2015 Jackie Vergara Final J96.12 Chronic respiratory failure with hypercapnia 10/15/2015 Jackie Vergara Final N17.0 Acute kidney failure with tubular necrosis 10/15/2015 Jackie Vergara Admitting N17.9 10/15/2015 Jackie Vergara Final N18.3 Chronic kidney disease, stage 3 ( moderate) 10/15/2015 Jackie Vergara Final N47.1 Phimosis 10/15/2015 Jackie Vergara Final R33.9 Retention of urine, unspecified 10/15/2015 Jackie Vergara Final Z93.0 Tracheostomy status Procedures Results Encounters ACCT No. Visit Date/Time Discharge Status Pt. Type Provider Facility Loc./Unit Complaint [id number] 12/17/2013 10:33:00 12/17/2013 23 :59:59 CLS Outpatient [id number] 12/03/2013 11:17:00 12/03/2013 23 :59:59 CLS Outpatient [id number] 11/16/2013 10:39:00 11/16/2013 23 :59:59 CLS Outpatient [id number] 09/01/2013 12:00:00 09/01/2013 23 :59:59 CLS Outpatient [id number] 08/31/2013 10:33:00 08/31/2013 23 :59:59 CLS Outpatient
--- OUTSIDE RECORDS SUMMARY | 2017-02-10 16:22 | XMS REPORT | Continuity of Care Document ---
Author Author [facility] Organization [facility] Address Unknown Phone Unavailable Support Name Relationship Address Phone ARMEN EMERSON MD Caregiver [address] [place] [address] [place] [phone] Unavailable SRAVANTHI BURGESS FACS, MD Caregiver [address] [place] [address] [place] [phone] Unavailable AMANDA DESIREE Next Of Kin [address], [place] [id number] Insurance Providers Guarantor Preethi Lackey Address [address] [place] [address] Email DENIED 16 Payer Medicareadvantra Ppo Policy Number [id number] Subscriber's Name Preethi Lackey Relationship 18 Self Group Number [id number] Payer [facility] Policy Number [id number] Subscriber's Name Preethi Lackey Relationship 18 Self Group Number [id number] Advance Directives Directive Response Recorded Date/Time Advanced Directives Type DPOA for Healthcare 03/29/14 8:42am Ordered Resuscitation Status Full Code 02/05/14 8:42pm Resuscitation Documents on File No 03/29/14 8:42am DPOA for Healthcare Only Yes 11/26/16 1:16pm Living Will No 11/26/16 1:16pm Problems Active Problems Medical Problem Onset Date Status ASCVD (arteriosclerotic cardiovascular disease) Unknown Chronic Abdominal pain Unknown Acute Abdominal pain ~03/2014 Acute Acute kidney injury Unknown Acute Acute renal failure (ARF) Unknown Acute Acute renal insufficiency ~03/2014 Resolved Anemia of chronic disease Unknown Chronic CKD (chronic kidney disease), stage II Unknown Chronic CKD (chronic kidney disease), stage III Unknown Chronic COPD (chronic obstructive pulmonary disease) Unknown Chronic Chronic respiratory failure Unknown Chronic Colon cancer Unknown Chronic Debility Unknown Acute Diabetes Unknown Chronic Dyslipidemia Unknown Chronic ELEVATED LIVER ENZYMES Unknown Acute ELEVATED TROPONIN Unknown Acute EXACERBATION OF COPD Unknown Acute Elevated levels of transaminase & lactic acid dehydrogenase Unknown Acute GI bleed Unknown Acute Hyperphosphatemia Unknown Acute Hypertension Unknown Chronic Hypokalemia Unknown Acute Hypomagnesemia Unknown Acute Hyponatremia Unknown Acute Hypotension Unknown Acute Hypothyroidism Unknown Chronic Hypoxia Unknown Acute Hypoxia Unknown Acute Ileocolic anastomotic leak Unknown Acute Immunosuppression Unknown Acute Intertriginous candidiasis Unknown Acute Morbid obesity with BMI of 40.0-44.9, adult Unknown Acute Morbid obesity with BMI of 45.0-49.9, adult Unknown Chronic Morbid obesity with BMI of 50.0-59.9, adult Unknown Acute ANTIONETTE on CPAP Unknown Chronic Peripheral neuropathy Unknown Chronic Physical debility Unknown Acute Pickwickian syndrome Unknown Chronic Pneumonia ~03/2014 Acute SIRS (systemic inflammatory response syndrome) Unknown Acute Sepsis ~03/2014 Acute Stasis dermatitis of both legs Unknown Chronic Surgical Problem Onset Date Status S/P exploratory laparotomy Unknown Acute Past Problems Medical Problem Onset Date 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 1 Applic Topically Daily 7 Days apply to incisions right groin daily for 7 days 11/27/16 Nitroglycerin (Nitrostat) 0.4 Mg Tab.subl 1 Tab Sublingual Every 5 Minutes X 3 as needed for Chestpain 09/13/10 Tramadol Hcl 50 Mg Tablet 50 Mg Oral Twice A Day 08/26/16 Past Home Medications Medication Directions Ordered Status Actose , 03/07/09 Discontinued Aspirin 325 Mg Tablet, 325 Mg Oral Daily 09/13/10 Discontinued Ciprofloxacin Hcl 500 Mg Tablet, 500 Mg Oral Twice A Day 10/04/09 Discontinued Citalopram Hydrobromide (Celexa) 40 Mg Tablet, 40 Mg Oral Daily 04/11/11 Discontinued Citalopram Hydrobromide (Celexa) 40 Mg Tablet, 1 Tab Oral Daily 09/13/10 Discontinued Clindamycin Hcl 300 Mg Capsule, 300 Mg Oral Four Times Daily 10/04/09 Discontinued Furosemide (Lasix) 40 Mg Tablet, 1 Tab Oral Daily 06/11/10 Discontinued Glimepiride 4 Mg Tablet, 4 Mg Oral Daily 10/23/11 Discontinued Levothyroxine Sodium 50 Mcg Tablet, 50 Mcg Oral Daily 01/22/11 Discontinued Levothyroxine Sodium 150 Mcg Tablet, 1 Tab Oral Daily 09/13/10 Discontinued Levothyroxine Sodium (Levothroid) 75 Mcg Tablet, 300 Mcg Oral Daily 06/11/10 Discontinued Lisinopril 20 Mg Tablet, 20 Mg Oral Daily 09/13/10 Discontinued Lisinopril 20 Mg Tablet, 1 Tab Oral Daily 06/11/10 Discontinued Metformin Hcl 500 Mg Tablet, 1000 Mg Oral Daily 10/23/11 Discontinued Metoprolol Succinate (Toprol Xl) 200 Mg Tab.sr.24h, 200 Mg Oral Daily Discontinued Metoprolol Succinate (Toprol Xl) 25 Mg Tab.sr.24h, 25 Mg Oral Twice A Day 11/07 Discontinued Pioglitazone Hcl (Actos) 30 Mg Tablet, 30 Mg Oral Daily 09/13/10 Discontinued Pioglitazone Hcl (Actos) 30 Mg Tablet, 1 Tab Oral Daily 06/11/10 Discontinued Potassium Chloride (Klor-Con M20) 20 Meq Tab.prt.sr, 20 Meq Oral Daily Discontinued Potassium Chloride (K-Dur) 20 Meq Tab.prt.sr, 1 Tab Oral Daily 09/13/10 Discontinued Potassium Chloride (Klor-Con M10) 10 Meq Tab.prt.sr, 20 Oral Daily 06/11/10 Discontinued Sertraline Hcl (Zoloft) 100 Mg Tablet, 100 Mg Oral Daily 06/11/10 Discontinued Sertraline Hcl (Zoloft) 50 Mg Tablet, 50 Mg Oral Daily 10/04/09 Discontinued Simvastatin (Zocor) 40 Mg Tablet, 1 Tab Oral Daily 06/11/10 Discontinued Simvastatin , 03/07/09 Discontinued Thyroid , 03/07/09 Discontinued Zocor , 03/07/09 Discontinued Social History Social History Problem Response Recorded Date/Time Onset Date Status Reason for Hospitalization COLONSCOPY, BX 11/27/2016 12:03pm Not Applicable Not Applicable Chewing Tobacco Status No 03/25/2014 2:04pm Not Applicable Not Applicable Hx Substance Use No 11/23/2016 11:04am Not Applicable Not Applicable Hx Alcohol Use No 11/23/2016 11:04am Not Applicable Not Applicable Has the pt used tobacco in the last 12 months No 11/23/2016 11:04am Not Applicable Not Applicable Quit (MM/YYYY) 04/200108/16/2014 4:07pm Not Applicable Not Applicable Tobacco Usage none 08/16/2014 4:07pm Not Applicable Not Applicable Query Response Start Date Stop Date Smoking Status Former smoker Hospital Discharge Instructions Instructions: Care Instructions: Discharge Diet: regular Discharge Activity: Do not drive, operate machinery for 24 hours after surgery or while taking pain medication. Follow Up Appointments: Follow up with Rema Moore APRN/Dr. Burgess December 11 at 1:15 Pending Lab / Results: Will be notified Expected Signs/Symptoms: tenderness in right groin will gradually subside Notify Physician If: 1. Call your surgeon if you are having problems relating to your surgery at [phone]. 2. Problems such as: Temp above 101.5 degrees You develop redness, excessive swelling of the incision, increasing pain or excessive foul smelling drainage. 3. If the office is closed, call [facility] at [phone] and have your Surgeon paged. During Business Hours:: Call your surgeon at at [phone]. After Business Hours:: If the office is closed, call [facility] at [phone] and have your Surgeon paged. Pain Management/Treatment: Follow prescriptions as prescribed Pain Scale Utilized to Educate Patient: 0-10 Pain Scale Wound/Incision Care: Riple antibiotic ointment to groing incisions daily. Nystatin powder to groin creases twice a day and coffee filters to absorb moisture Condition at time of discharge: Good Plan of Care Discharge Date 11/27/16 12:18pm Instructions/Education Provided Tracheostomy Care (GEN) Prescriptions See Medication Section Functional Status Query Response Date Recorded Assistive Devices None November 26, 2016 4:00pm Activity Limitations None November 26, 2016 4:00pm Feeding Ability Independent November 26, 2016 4:00pm Toileting Ability Assist November 26, 2016 4:00pm Grooming Ability Assist November 26, 2016 4:00pm Dressing Ability Assist November 26, 2016 4:00pm Driving Ability Dependent November 26, 2016 4:00pm Housework Ability Assist November 26, 2016 4:00pm Meal Preparation Ability Assist November 26, 2016 4:00pm Stair Climbing Ability Assist November 26, 2016 4:00pm Ability to complete ADL's impeded by No change November 26, 2016 4:00pm Cognitive/Perceptual Impairments Impaired vision November 26, 2016 4:00pm Visual Assistive Devices Glasses With patient November 26, 2016 4:00pm Allergies, Adverse Reactions, Alerts Allergen Type Severity Reaction Status Last Updated No Known Drug Allergies Allergy Unknown Active 11/26/16 Immunizations Query Response on File Recorded Date/Time Hx Influenza Vaccination No 11/23/16 11:04am Hx Pneumococcal Vaccination Y fall 201011/23/16 11:04am Hx Tetanus, Diptheria, Pertussis No 08/16/14 3:42pm Hx Influenza Vaccination No 11/23/16 11:04am Hx Tetanus Diptheria No 08/16/14 3:42pm Hx Tetanus, Diptheria, Pertussis No 08/16/14 3:42pm Hx Tetanus Toxoid Vaccination No 08/16/14 3:42pm Influenza Vaccine Hx NONE 08/26/16 1:19pm Vital Signs Acute Vital Signs Vital Response Date/Time Temperature (Fahrenheit) 95.6 deg F (96.8 - 99.1) 11/27/2016 12:11pm Temperature (Calculated Celsius) 35.14144 degrees C (36.0 - 37.3) 11/27/2016 12:11pm Temperature Source Oral 11/27/2016 12:11pm Pulse Rate (adult) 72 bpm (60 - 100) 11/27/2016 12:11pm Respiratory Rate 18 breaths/min (10 - 20) 11/27/2016 12:11pm O2 Sat by Pulse Oximetry 92 % (90 - 100) 11/27/2016 12:11pm Oxygen Delivery Method Room Air 11/27/2016 12:11pm Oxygen Delivery Method Nasal Cannula 11/26/2016 3:55pm Oxygen Flow Rate 8.00 L/min 11/27/2016 10:00am Fraction of Inspired Oxygen (FIO2) 35 % 11/26/2016 7:45pm Blood Pressure 116/69 mm Hg 11/27/2016 12:11pm Blood Pressure Source Automatic Cuff 11/27/2016 12:11pm Height (Feet) 5 feet 11/26/2016 12:58pm Height (Inches) 4.00 inches 11/26/2016 12:58pm Weight (Kilograms) 146.200 kg 11/27/2016 9:41am Body Mass Index (BMI) 55.0 11/26/2016 12:58pm Results Laboratory Results Test Name Result Units Flags Reference Collection Date/Time Result Date/ Time Comments White Blood Count 15.7 T/MM3 H 4.5-11.0 11/26/2016 1:08pm 11/26/2016 1: 37pm Red Blood Count 4.25 M/MM3 L 4.50-5.90 11/26/2016 1:08pm 11/26/2016 1: 37pm Hemoglobin 12.0 GM/DL L 13.5-17.5 11/26/2016 1:08pm 11/26/2016 1:37pm Hematocrit 38.4 % L 41-53 11/26/2016 1:08pm 11/26/2016 1:37pm Mean Corpuscular Volume 90.4 UM3 80-100 11/26/2016 1:08pm 11/26/2016 1: 37pm Mean Corpuscular Hemoglobin 28.2 UUG 26-34 11/26/2016 1:08pm 2016 1:37pm Mean Corpuscular Hemoglobin Concent 31.3 GM/DL 31-37 11/26/2016 1:08pm 11/26/2016 1:37pm RDW Standard Deviation 50.3 FL H 36.9-50.2 11/26/2016 1:08pm 11/26/2016 1:37pm Platelet Count 218 T/MM3 130-400 11/26/2016 1:08pm 11/26/2016 1:37pm Mean Platelet Volume 9.0 UM3 L 9.4-12.4 11/26/2016 1:08pm 11/26/2016 1: 37pm Neutrophils % (Manual) 74.0 % H 33-66 11/26/2016 1:08pm 11/26/2016 1: 50pm Band Neutrophils % 2.0 % 0-6 11/26/2016 1:08pm 11/26/2016 1:50pm Lymphocytes % (Manual) 22.0 % L 23-45 11/26/2016 1:08pm 11/26/2016 1: 50pm Monocytes % (Manual) 1.0 % 0-9.0 11/26/2016 1:08pm 11/26/2016 1:50pm Eosinophils % (Manual) 1.0 % 0-4 11/26/2016 1:08pm 11/26/2016 1:50pm Band Neutrophils # 0.3 T/MM3 11/26/2016 1:08pm 11/26/2016 1:50pm Absolute Neutrophils (Manual) 11.6 T/MM3 H 1.8-7.7 11/26/2016 1:08pm 02/2017 1:50pm Lymphocytes # (Manual) 3.5 T/MM3 1-4.8 11/26/2016 1:08pm 11/26/2016 1: 50pm Monocytes # (Manual) 0.2 T/MM3 0-0.8 11/26/2016 1:08pm 11/26/2016 1: 50pm Eosinophils # (Manual) 0.2 T/MM3 0-0.5 11/26/2016 1:08pm 11/26/2016 1: 50pm Nucleated Red Blood Cells 1 11/26/2016 1:08pm 11/26/2016 1:50pm Red Cell Morphology Comment NORMAL 11/26/2016 1:08pm 11/26/2016 1: 50pm Icterus Index < 2 0-7 11/26/2016 1:08pm 11/26/2016 3:02pm Chemistry Specimen Hemolysis < 15 0-25 11/26/2016 1:08pm 11/26/2016 3 :02pm 0-25: Specimen Exhibited No Hemolysis. Turbidity < 20 0-20 11/26/2016 1:08pm 11/26/2016 3:02pm Sodium Level 138 MEQ/L 134-144 11/26/2016 1:08pm 11/26/2016 3:02pm Potassium Level 4.5 MEQ/L 3.6-5 11/26/2016 1:08pm 11/26/2016 3:02pm Chloride Level 101 MEQ/L 98-107 11/26/2016 1:08pm 11/26/2016 3:02pm Carbon Dioxide Level 21 MEQ/L L 22-30 11/26/2016 1:08pm 11/26/2016 3: 02pm Anion Gap 16 MEQ/L H 5-15 11/26/2016 1:08pm 11/26/2016 3:02pm Blood Urea Nitrogen 23.0 MG/DL H 9-20 11/26/2016 1:08pm 11/26/2016 3: 02pm Creatinine 3.5 MG/DL H 0.8-1.5 11/26/2016 1:08pm 11/26/2016 3:02pm BUN/Creatinine Ratio 7 RATIO 6-26 11/26/2016 1:08pm 11/26/2016 3:02pm Glomerular Filtration Rate Calc 18 11/26/2016 1:08pm 11/26/2016 3: 02pm Glucose Level 111 MG/DL H 75-110 11/26/2016 1:08pm 11/26/2016 3:02pm Calculated Osmolality 271 MOSM/KG 261-280 11/26/2016 1:08pm 11/26/2016 3:02pm Calcium Level 9.0 MG/DL 8.4-10.2 11/26/2016 1:08pm 11/26/2016 3:02pm Total Bilirubin 0.70 MG/DL 0.20-1.30 11/26/2016 1:08pm 11/26/2016 3: 02pm Alkaline Phosphatase 130 U/L H 38-126 11/26/2016 1:08pm 11/26/2016 3: 02pm Total Protein 8.4 G/DL H 6.3-8.2 11/26/2016 1:08pm 11/26/2016 3:02pm Albumin 4.1 G/DL 3.5-5.0 11/26/2016 1:08pm 11/26/2016 3:02pm Globulin 4.3 G/DL H 2.4-3.6 11/26/2016 1:08pm 11/26/2016 3:02pm Albumin/Globulin Ratio 1.0 RATIO L 1.1-2.2 11/26/2016 1:08pm 11/26/2016 3:02pm Aspartate Amino Transf (AST/SGOT) 43 U/L 17-59 11/26/2016 1:08pm 2016 3:02pm Alanine Aminotransferase (ALT/SGPT) 53 U/L 21-72 11/26/2016 1:08pm 02/2017 3:02pm Procedures Procedure Status Date Provider(s) Colonoscopy with polypectomy and biopsy Completed 11/26/16 SRAVANTHI BURGESS MD, FACS, CWS Excision, lesion Completed 11/26/16 SRAVANTHI BURGESS MD, FACS, CWS Encounters Encounter Location Arrival/Admit Date Discharge/Depart Date Attending Provider Departed [facility] 11/26/16 12:22pm 11/27/16 12:18pm SRAVANTHI BURGESS FACS CWS MD
--- OUTSIDE RECORDS SUMMARY | 2017-02-10 16:23 | XMS REPORT | Continuity of Care Document ---
Author Author [facility] Organization [facility] Address Unknown Phone Unavailable Support Name Relationship Address Phone BENJAMÍNESTELA RODRÍGUEZ Caregiver [address] [phone] RUBY TAVAREZ MD Caregiver [address] [place] [address] [place] [address] KIZZY SOLIS MD Caregiver [address] [place] [phone] DESIREE LACKEY Next Of Kin [address] [place] [address] CP Insurance Providers Payer Name Policy Number Subscriber Name Relationship Medicareadvantra Ppo [id number] Preethi Lackey 19 Self Advance Directives Directive Response Recorded Date/Time Advanced Directives Type DPOA for Healthcare 03/29/14 8:42am Ordered Resuscitation Status Full Code 02/05/14 8:42pm Resuscitation Documents on File No 03/29/14 8:42am Chief Complaint and Reason for Visit Chief Complaint ACUTE RENAL FAILURE Reason for Visit ANTIONETTE on CPAP Hypokalemia Intertriginous candidiasis Anemia of chronic disease Immunosuppression SIRS (systemic inflammatory response syndrome) Acute kidney injury CKD (chronic kidney disease), stage III Morbid obesity with BMI of 40.0-44.9, adult Hyponatremia Acute renal failure (ARF) Hyperphosphatemia Hypomagnesemia Problems Medical Problems Problem Onset Date Status [...] of 45.0-49.9, adult Unknown Active Hypokalemia Unknown Active Debility Unknown Active Intertriginous candidiasis Unknown Active Anemia of chronic disease Unknown Active Immunosuppression Unknown Active SIRS (systemic inflammatory response syndrome) Unknown Active Acute kidney injury Unknown Active CKD (chronic kidney disease), stage III Unknown Active Morbid obesity with BMI of 40.0-44.9, adult Unknown Active Hyponatremia Unknown Active Acute renal failure (ARF) Unknown Active Hyperphosphatemia Unknown Active Hypomagnesemia Unknown Active Surgical Problems Problem Onset Date [...] Metoprolol Succinate 200 Mg PO DAILY 09/13/10 08/21/14 Discontinued Aspirin 325 Mg PO DAILY 09/13/10 08/16/14 Discontinued Lisinopril 20 Mg PO DAILY 09/13/10 04/30/14 Discontinued Pioglitazone HCl 30 Mg PO DAILY 09/13/10 10/23/11 Discontinued Levothyroxine Sodium 50 Mcg PO DAILY 01/22/11 04/11/11 Discontinued Levothyroxine Sodium 200 Mcg PO DAILY 04/11/11 Active Citalopram Hydrobromide 40 Mg PO DAILY 04/11/11 10/23/11 Discontinued Metformin Hcl 1,000 Mg PO DAILY 10/23/11 04/30/14 Discontinued Glimepiride 4 Mg PO DAILY 10/23/11 03/03/13 Discontinued Potassium Chloride 20 Meq PO DAILY 03/29/14 04/30/14 Discontinued Hydrocodone Bit/Acetaminophen 1 Tab PO NEEDED 04/10/14 Active Aspirin 1 Tab PO DAILY 08/16/14 Active Fenofibric Acid (Choline) PO DAILY 30 Qty 08/16/14 Active Prednisone 10 Mg PO DAILY 30 Qty 08/16/14 Active Metoprolol Succinate 100 Mg PO DAILY 30 Days 08/21/14 Active Psyllium Husk (with Sugar) 1 Packet PO GIVE WITH SUPPER For bulk up stool 28 Days 08/21/14 Active Magnesium Oxide 400 Mg PO DAILY 30 Days 08/21/14 Active Social History Social History Problem Response Recorded Date/Time Smoking Status Former smoker 03/29/2014 8:52am When did patient START smoking? 20 YEARS OLD 08/16/2014 3:41pm When did patient STOP smoking? 51 YEARS OLD 08/16/2014 3:41pm Chewing Tobacco Status No 03/25/2014 2:04pm Hx Substance Use No 08/16/2014 11:05am Hx Alcohol Use No 08/16/2014 11:05am Has the pt used tobacco in the last 12 months No 08/16/2014 3:41pm Query Response Start Date Stop Date Smoking Status Former smoker Hospital Discharge Instructions Discharge Medications/Orders are not finalized. Discharge Medications/Orders are not finalized. Reason for Hospitalization: Pneumonia I was in the hospital because (patient own words): : DR. PATTERSON THOUGHT HE HAD A TOUCH OF PNEUMONIA Discharge Diet: Heart Healthy Discharge Activity: As tolerated Follow Up Appointments: Dr Patterson this week for reevaluation, please call Saturday to make an appointment. Condition at time of discharge: Good Plan of Care Discharge Date 08/21/14 3:15pm Disposition 01 DISCHARGED HOME, SELF-CARE Instructions/Education Provided [facility] [place] Congestive Heart Failure Prescriptions See Medications Section Functional Status Query Response Date Recorded Physical Hygiene Self August 16, 2014 11:05am Disabilities None August 16, 2014 11:05am Devices Used Glasses Cane Walker August 16, 2014 11:05am Dressing Assist August 16, 2014 11:05am Ambulation Assist August 16, 2014 11:05am Diet Self August 16, 2014 11:05am Mental Status Alert Oriented August 17, 2014 8:58am Disabilities None August 16, 2014 11:05am Devices Used Glasses Cane Walker August 16, 2014 11:05am Physical Hygiene Self August 16, 2014 11:05am Dressing Assist August 16, 2014 11:05am Ambulation Assist August 16, 2014 11:05am Diet Self August 16, 2014 11:05am Allergies, Adverse Reactions, Alerts Allergen Type Severity Reaction Status Last Updated No Known Drug Allergies Allergy Unknown Active 04/10/14 Immunizations Name Given Type Hx Influenza Vaccination No Historical Hx Pneumococcal Vaccination Y FALL 2010 Historical Hx Tetanus, Diptheria, Pertussis No Historical Hx Influenza Vaccination No Historical Hx Tetanus Diptheria No Historical Hx Tetanus, Diptheria, Pertussis No Historical Hx Tetanus Toxoid Vaccination No Historical Vital Signs Acute Vital Signs Vital Response Date/Time Temperature (Fahrenheit) 96.6 deg F (96.8 - 99.1) Temperature (Calculated Celsius) 35.88628 degrees C (36.0 - 37.3) Temperature Source Axillary Pulse Rate (adult) 89 bpm (60 - 100) Respiratory Rate 16 breaths/min (10 - 20) O2 Sat by Pulse Oximetry 94 % (90 - 100) Height 5 ft 8 in Weight 287 lb Body Mass Index 43.0 kg/m^2 Results Test Source Date Result Interp. Ref. Range Comments Acetone Level October 01, 2009 3:20pm Negative - Activated Partial Thromboplast Time July 11, 2013 7:07pm 31.9 SEC N 24-36 Alanine Aminotransferase (ALT/SGPT) August 16, 2014 12:10pm 65 U/L N 21-72 Albumin August 16, 2014 12:10pm 4.1 G/DL N 3.5-5.0 Albumin/Globulin Ratio August 16, 2014 12:10pm 1.4 RATIO N 1.1-2.2 Alkaline Phosphatase August 16, 2014 12:10pm 121 U/L N 38-126 Anion Gap August 21, 2014 4:53am 5 MEQ/L N 5-15 Anisocytosis February 09, 2014 [...] L 80- 100 Aspartate Amino Transf (AST/SGOT) August 16, 2014 12:10pm 32 U/L N 17- 59 B-Type Natriuretic Peptide February 03, 2011 9:30am 28 PG/ML N 15-100 BUN/Creatinine Ratio August 21, 2014 4:53am 9 RATIO N 6-26 Band Neutrophils # August 21, 2014 4:53am 0.4 T/MM3 - Band Neutrophils % August 21, 2014 4:53am 3.0 % N 0-6 Basophils # (Auto) April 22, 2014 5:15am 0.0 T/MM3 N 0-0.2 Basophils # (Manual) August 18, 2014 4:41am 0.1 T/MM3 N 0-0.2 Basophils % (Manual) August 18, 2014 4:41am 1.0 % N 0-2 Basophils (%) (Auto) April 22, 2014 5:15am 0.9 % N 0-2 Blood Gas Oxygen Percent Given April 24, [...] 6:02am Not Performed 0-30 Blood Urea Nitrogen August 21, 2014 4:53am 15.0 MG/DL N 9-20 C. difficile Toxin B Gene (PCR) June 19, 2010 8:58pm Negative - If Toxin A is clinically indicated, treat accordingly. Calcium Level August 21, 2014 4:53am 8.0 MG/DL L 8.4-10.2 Calculated Osmolality August 21, 2014 4:53am 256 MOSM/KG L 261-280 Carbon Dioxide Level August 21, 2014 4:53am 26 MEQ/L N 22-30 Carcinoembryonic Antigen March 29, 2014 8:39am 1.73 UG/L N 0-3.0 ADD-ON TESTING FROM THIS MORNING/[facility] Chemistry Specimen Hemolysis August 21, 2014 4:53am < 15 0-25 0-25 : No Hemolysis.26-70: Slight Hemolysis - can falsely elevate K and Urine Protein. 71-285: Moderate Hemolysis - can falsely elevate K, Troponin I, CA 19-9, PTH, CSF GLucose, and Urine Protein, and can falsely decrease Phenytoin. 286-999: Gross Hemolysis - can falsely elevate K, Troponin I, CA 19-9, PTH, CSF Glucose, and Urine Protine, and can falsely decrease Phenytoin. Recommend specimen recollection. Chloride Level August 21, 2014 4:53am 102 MEQ/L N 98-107 Cholesterol Level June 13, 2010 5:15am 140 MG/DL N 132-199 Cholesterol/HDL Ratio June 13, 2010 5:15am 7.8 RATIO H 0-5.0 Conjugated Bilirubin October 23, 2011 3:20pm 0.00 MG/DL N 0.00-0.30 Corrected White Blood Count April 23, 2014 5:30am --- 04/23/14 0707 --- CWBC previously reported as: 1376833293.0 H T/MM3 4.5-11.0 Creatine Kinase MB September 15, 2010 8:50am 0.8 NG/ML N 0-3.4 Creatinine August 21, 2014 4:53am 1.6 MG/DL H 0.8-1.5 D-Dimer July 11, 2013 7:06pm 721 NG/ML H 0-230 <224 NG/ML= PRESUMPTIVE NEGATIVE FOR PE OR DVT>224 NG/ML=ADDITIONAL EVALUATION FOR PE OR DVT RECOMMENDED Differential Total Cells Counted January 29, 2011 5:30am 100 % - EKG October 01, 2009 3:15pm Complete - Eosinophils # (Auto) April 22, 2014 5:15am 0.2 T/MM3 N 0-0.5 Eosinophils # (Manual) August 21, 2014 4:53am 0.3 T/MM3 N 0-0.5 Eosinophils % (Manual) August 21, 2014 4:53am 2.0 % N 0-4 Eosinophils (%) (Auto) April 22, 2014 5:15am 4.8 % H 0-4 Ferritin February 05, 2014 7:56pm 13.8 NG/ML L 18-464 COMMENT may use blood in lab Free Thyroxine October 23, 2011 3:20pm 1.12 NG/DL N 0.78-2.19 Free Triiodothyronine October 01, 2009 3:20pm 0.81 PG/ML L 2.77-5.27 Gentamicin Level Peak April 27, 2014 2:55pm 8.9 UG/ML N 5-12 Gentamicin Level Trough April 28, 2014 2:24pm 1.1 UG/ML N 0-2 Globulin August 16, 2014 12:10pm 3.0 G/DL N 2.4-3.6 Glomerular Filtration Rate Calc August 21, 2014 4:53am 44 - Glucometer April 27, 2014 5:47am 87 mg/dL N 75-110 Glucose Level August 21, 2014 4:53am 72 MG/DL L 75-110 HDL Cholesterol Direct June 13, 2010 5:15am 18 MG/DL L 40-60 Hematocrit August 21, 2014 4:53am 28.0 % L 41-53 Hemoglobin August 21, 2014 4:53am 9.2 GM/DL L 13.5-17.5 Hemoglobin A1c August 16, 2014 12:10pm 5.9 % L 6-7 <6.0 NON-DIABETIC RANGE6.0-7.0 ADA THERAPEUTIC RANGE >7.0 ACTION SUGGESTED Hypochromasia February 09, 2014 4:25am 1+ - Icterus Index August 21, 2014 4:53am < 2 0-7 Immature Granulocyte # (Auto) April 22, 2014 5:15am 0.07 T/MM3 H 0.00- 0.03 Immature Granulocyte % (Auto) April 22, 2014 5:15am 1.6 % H 0.0-0.5 Influenza Type A Antigen July 11, 2013 [...] 5:15am 98.0 N 66-159 Lab Scanned Report August 09, 2014 12:08pm LAB TEST FORM REQUEST [id number] - Lactate Dehydrogenase August 09, 2014 12:00am 594 U/L N 313-618 ADD- ON TESTING/SJM Lactic Acid Level October 02, 2009 4:40am Send out - Large Platelets July 21, 2013 5:05am Many - Lipase April 10, 2014 2:30am 34 U/L N 23-300 Lymphocytes # (Auto) April 22, 2014 5:15am 1.7 T/MM3 N 1-4.8 Lymphocytes # (Manual) August 21, 2014 4:53am 4.3 T/MM3 N 1-4.8 Lymphocytes % (Manual) August 21, 2014 4:53am 30.0 % N 23-45 Lymphocytes (%) (Auto) April 22, 2014 5:15am 39.4 % N 23-45 Magnesium Level August 21, 2014 4:53am 1.0 MG/DL L 1.6-2.3 Mean Corpuscular Hemoglobin August 21, 2014 4:53am 29.7 UUG N 26-34 Mean Corpuscular Hemoglobin Concent August 21, 2014 4:53am 32.9 GM/DL N 31-37 Mean Corpuscular Volume August 21, 2014 4:53am 90.3 UM3 N 80-100 Mean Platelet Volume August 21, 2014 4:53am 9.9 UM3 N 9.4-12.4 Metamyelocytes # August 21, 2014 4:53am 0.6 T/MM3 - Metamyelocytes % August 21, 2014 4:53am 4.0 % H 0-0 Microcytosis July 21, 2013 5:05am 1+ - Monocytes # (Auto) April 22, 2014 5:15am 1.0 T/MM3 H 0-0.8 Monocytes # (Manual) August 21, 2014 4:53am 1.8 T/MM3 H 0-0.8 Monocytes % (Manual) August 21, 2014 4:53am 13.0 % H 0-9.0 Monocytes (%) (Auto) April 22, 2014 5:15am 22.4 % H 0-9.0 Myelocytes # August 20, 2014 4:19am 0.3 T/MM3 - Myelocytes % August 20, 2014 4:19am 2.0 % H 0-0 Myoglobin October 05, 2009 4:40am 130.6 NG/ML H 0-121 YB-Mdo-Y-Type Natriuretic Peptide April 11, 2014 4:50am 1150 PG/ML H 0- 175 Rule in cut points: <50 years old=450; 50-75 years old=900; >75 years old=1800; When utilizing ProBNP rule-in cut points, adjustment for impaired renal function is typically not required. Neutrophils # (Auto) April 22, 2014 5:15am 1.4 T/MM3 L 1.8-7.7 Neutrophils # (Manual) August 21, 2014 4:53am 6.8 T/MM3 N 1.8-7.7 Neutrophils % (Manual) August 21, 2014 4:53am 48.0 % N 33-66 Neutrophils (%) (Auto) April 22, 2014 5:15am 30.9 % L 33-66 Nucleated Red Blood Cells January 29, 2011 5:30am 2 - Oxygen Delivery Method (LAB) April 24, 2014 3:35pm Venturi mask, % - Phosphorus Level August 21, 2014 4:53am 2.0 MG/DL L 2.5-4.5 Platelet Count August 21, 2014 4:53am 147 T/MM3 N 130-400 Poikilocytosis September 13, 2010 5:44pm 4+ - Potassium Level August 21, 2014 4:53am 4.3 MEQ/L DN 3.6-5 Prealbumin August 16, 2014 12:10pm 22.4 MG/DL N 17.6-36.0 COMMENT blood in lab Procalcitonin August 16, 2014 1:29pm 0.25 NG/ML - PCT </=0.5 ng/mL - sepsis not likely;PCT >0.5 and </=2 ng/mL - sepsis possible; PCT >2 ng/mL - sepsis likely; PCT >/=10 ng/mL - systemic inflammatory response - sepsis or septic shock highly indicated. Prothromb Time International Ratio July 11, 2013 7:07pm 1.35 H 0.86- 1.10 THERAPUTIC RANGE=2.00-3.00 FOR ANTI-THROMBOSIS THERAPUTIC RANGE=2.50- 3.50 FOR IMPLANTED VALVE RDW Standard Deviation August 21, 2014 4:53am 58.6 FL H 36.9-50.2 Reactive Lymphocytes # August 19, 2014 4:22am 0.7 T/MM3 H 0-0 Reactive Lymphocytes % August 19, 2014 4:22am 5.0 % H 0-0 Red Blood Count August 21, 2014 4:53am 3.10 M/MM3 L 4.50-5.90 Sodium Level August 21, 2014 4:53am 133 MEQ/L L 134-144 Stomatocytes September 13, 2010 5:44pm 4+ - Stool Occult Blood September 22, 2010 8:45pm Negative - Has specimen been collected/obtained? Y Tests Not Done March 07, 2009 7:54pm Not done - COMMENT DO C&S IF INDICATEDHas specimen been collected/obtained? Y Thyroid Stimulating Hormone (TSH) August 16, 2014 12:10pm 5.83 MIU/L DH 0.47-4.68 COMMENT blood in lab Total Bilirubin August 16, 2014 12:10pm 0.50 MG/DL N 0.20-1.30 Total Creatine Kinase October 11, 2009 6:00am 143 U/L N 55-170 Total Protein August 16, 2014 12:10pm 7.1 G/DL N 6.3-8.2 Total Triiodothyronine October 30, 2008 3:10pm 0.62 NG/ML L 0.97-1.69 Triglycerides Level June 13, 2010 5:15am 120 MG/DL N 40-160 Troponin I August 16, 2014 12:10pm 0.024 ng/ml N 0-0.12 Turbidity August 21, 2014 4:53am < 20 0-20 U Collection Dur (Immunofixation) February 17, 2013 2:07pm Random Hr - Protein electrophoresis, Urine performed at [facility], [address] [place] [id number] [address] Grainer Bj Ware MD U Collection Volume (Immunofixation February 17, 2013 2:07pm Random mL - Unconjugated Bilirubin October 23, 2011 3:20pm 0.00 MG/DL N 0.00-1.10 Urinalysis Comment April 10, 2014 4:40am Microscopic not ind. - Has specimen been collected/obtained? Y Urine Albumin (%) February 17, 2013 2:07pm 45.8 % - Urine Bgwfh-2-Jgqclpxi February 17, 2013 2:07pm 4.5 % - Urine Jefzk-5-Loflntgpm February 17, 2013 2:07pm 12.3 % - Urine Amorphous Phosphates October 01, 2009 3:45pm Many - Has specimen been collected/obtained? Y Urine Amorphous Urates August 16, 2014 1:15pm Few - Has specimen been collected/obtained? Y Urine Bacteria August 16, 2014 1:15pm None seen - Has specimen been collected/obtained? Y Urine Beta Globulin February 17, 2013 2:07pm 7.2 % - Urine Bilirubin August 16, 2014 1:15pm Negative - Has specimen been collected/obtained? Y Urine Blood August 16, 2014 1:15pm Negative - Has specimen been collected/obtained? Y Urine Calcium Oxalate Crystals March 03, 2013 2:48pm Many - Has specimen been collected/obtained? Y Urine Collection Type August 16, 2014 1:15pm Gomez indwelling - Has specimen been collected/obtained? Y Urine Color August 16, 2014 1:15pm Yellow - Has specimen been collected/obtained? Y Urine Comment February 17, 2013 2:07pm see below - Mild non-selective proteinuria. Urine Culture Indicated March 03, 2013 2:48pm Cult reflexed &setup - Has specimen been collected/obtained? Y Urine Fine Granular Casts October 01, 2009 3:45pm 1-3 /LPF - Has specimen been collected/obtained? Y Urine Gamma Globulin February 17, 2013 2:07pm 30.2 % - Urine Glucose (UA) August 16, 2014 1:15pm Negative - Has specimen been collected/obtained? Y Urine Hyaline Casts March 03, 2013 2:48pm 0-1 /LPF - Has specimen been collected/obtained? Y Urine Ketones August 16, 2014 1:15pm Negative - Has specimen been collected/obtained? Y Urine Leukocyte Esterase August 16, 2014 1:15pm Negative - Has specimen been collected/obtained? Y Urine Microscopic Not Indicated October 24, 2011 2:10am Not indicated - Has specimen been collected/obtained? Y Urine Mucus February 17, 2013 2:07pm Present - Urine Myoglobin October 02, 2009 12:45pm Send out - Has specimen been collected/obtained? YWhat is the Source? [place] Urine Nitrite August 16, 2014 1:15pm Negative - Has specimen been collected/obtained? Y Urine Protein August 16, 2014 1:15pm 2+ H - Has specimen been collected/obtained? Y Urine RBC August 16, 2014 1:15pm 0-1 /HPF - Has specimen been collected/obtained? Y Urine Specific [place] August 16, 2014 1:15pm >=1.030 H - Has specimen been collected/obtained? Y Urine Squamous Epithelial Cells February 17, 2013 2:07pm Few - Urine Total Protein February 17, 2013 2:07pm 36 mg/dL H - Protein electrophoresis, Urine performed at [facility], [facility] [place] [address] Wood Grainer Bj Ware MD Urine Total Protein Timed February 17, 2013 2:07pm Na mg/24hrs - Value may increase up to 300mg/24hour following exercise.Reported as mg/hrs collected , reference range is based on 24 hr collection. Urine Triple Phosphate Crystals March 03, 2013 2:48pm Many - Has specimen been collected/obtained? Y Urine Turbidity August 16, 2014 1:15pm Sl cloudy - Has specimen been collected/obtained? Y Urine Uric Acid Crystals March 03, 2013 2:48pm Not Performed - Urine Urobilinogen August 16, 2014 1:15pm 0.2 EU/DL - Has specimen been collected/obtained? Y Urine WBC August 16, 2014 1:15pm 0-1 /HPF - Has specimen been collected/obtained? Y Urine WBC Clumps March 03, 2013 2:48pm Few - Has specimen been collected/obtained? Y Urine Waxy Casts March 03, 2013 2:48pm 0-1 /LPF - Has specimen been collected/obtained? Y Urine pH August 16, 2014 1:15pm 5.5 - Has specimen been collected/ obtained? [...] or Percent) ROOM AIR Venous Blood Lactate August 16, 2014 1:30pm 1.1 MMOL/L N 0.6-2.2 Venous Blood Oxygen Content [...] or Percent) ROOM AIR Vitamin B12 Level August 16, 2014 12:10pm 428 PG/ML N 239-931 COMMENT blood in lab White Blood Count August 21, 2014 4:53am 14.2 T/MM3 H 4.5-11.0 Blood Culture Catheter/Port Blood August 16, 2014 1:30pm NO GROWTH AFTER 5 DAYS Gram Stain Drainage-Other January 28, 2011 10:00am Gram Stain Tracheostomy Tube March 03, 2013 10:35am Gram Stain Sputum-Endotracheal Wash April 10, 2014 3:15am Gram Stain Peritoneum April 13, 2014 6:46pm Urine Culture Urine, [place] March 03, 2013 3:24pm Gram Stain Skin March 03, 2013 11:41am Name: PREETHI LACKEY Unit #: [id number] : 1950 Sex: M Loc / Svc: MED DOS: 08/16/14 Signed Report #: [id number] DIAGNOSTIC IMAGING REPORT TYPE OF EXAM: US RENAL Dictated By: PERLA CHAU MD INDICATION: ITS.REASON: MARCEL, hx stage III CKD US RENAL: Comparison: February 17, 2013 FINDINGS: Technically limited study due to patient body habitus. No gross hydronephrosis either kidney. Parenchymal and cortical detail is quite limited. Right kidney measures 12.6 cm in length while the left kidney measures 12.1 cm in length. There are small echogenic areas in both kidneys which could represent stones. Impression: No hydronephrosis. Possible nephrolithiasis. . Procedures Procedure Status Date Provider(s) BL SMEAR W/DIFF WBC COUNT completed 07/26/14 COMPLETE CBC AUTOMATED completed 07/26/14 COMPREHEN METABOLIC PANEL completed 08/09/14 LACTATE (LD) (LDH) ENZYME completed 08/09/14 Encounters Encounter Location Date/Time Discharged Inpatient [facility] 08/16/14 1:52pm Registered Clinic [facility] 08/09/14 9:42am Registered Clinic [facility] 07/26/14 10:53am Registered [facility] 06/07/14 8:52am Recent Diagnosis ANTIONETTE on CPAP Hypokalemia Intertriginous candidiasis Anemia of chronic disease Immunosuppression SIRS (systemic inflammatory response syndrome) Acute kidney injury CKD (chronic kidney disease), stage III Morbid obesity with BMI of 40.0-44.9, adult Hyponatremia Acute renal failure (ARF) Hyperphosphatemia Hypomagnesemia
--- OUTSIDE RECORDS SUMMARY | 2017-02-10 16:23 | XMS REPORT | Continuity of Care Document ---
Author Author [facility] Organization [facility] Address Unknown Phone Unavailable Support Name Relationship Address Phone KIZZY SOLIS MD Caregiver [address] [place] [address] [place] [phone] SRAVANTHI BURGESS FACS CWS Caregiver [address] [place] [address] [address] [place] [phone] DESIREE LACKEY Next Of Kin [address] [place], [place] [id number] CP Insurance Providers Payer Name Policy Number Subscriber Name Relationship Medicareadvantra Ppo [id number] Preethi Lackey 19 Self Advance Directives Directive Response Recorded Date/Time Advanced Directives Type DPOA for Healthcare 03/29/14 8:42am Ordered Resuscitation Status Full Code 02/05/14 8:42pm Resuscitation Documents on File No 03/29/14 8:42am Chief Complaint and Reason for Visit Chief Complaint GI Bleed Reason for Visit GI bleed Problems Medical Problems Problem Onset Date Status ELEVATED LIVER ENZYMES Unknown Active ELEVATED TROPONIN Unknown Active EXACERBATION OF COPD Unknown Active Elevated levels of transaminase & lactic acid dehydrogenase Unknown Active Hypoxia Unknown Active GI bleed Unknown Active Medications Medication Dose Route Sig Days/Qty [...] Active Lisinopril 20 Mg PO DAILY 09/13/10 Active Furosemide 40 Mg PO DAILY 09/13/10 Active Pioglitazone HCl 30 Mg PO DAILY 09/13/10 10/23/11 Discontinued Levothyroxine Sodium 50 Mcg PO DAILY 01/22/11 04/11/11 Discontinued [Trilipix 135MG] 1 Cap PO DAILY 01/22/11 Active Levothyroxine Sodium 250 Mcg PO DAILY 04/11/11 Active Citalopram Hydrobromide 40 Mg PO DAILY 04/11/11 10/23/11 Discontinued Metformin Hcl 1,000 Mg PO DAILY 10/23/11 Active Glimepiride 4 Mg PO DAILY 10/23/11 03/03/13 Discontinued Potassium Chloride 20 Meq PO DAILY 03/29/14 Active Social History Social History Problem Response Recorded Date/Time Smoking Status Former smoker 03/29/2014 8:52am Chewing Tobacco Status No 03/25/2014 2:04pm Hx Substance Use No 03/25/2014 2:04pm Hx Alcohol Use No 03/25/2014 2:04pm Has the pt used tobacco in the last 12 months No 03/29/2014 8:52am Query Response Start Date Stop Date Smoking Status Former smoker Hospital Discharge Instructions Instructions: Care Instructions: Reason for Hospitalization: Discharge Diet: REGULAR Discharge Activity: DIRECTED Follow Up Appointments: Follow up appointment scheduled for: With:CALL TO SCHEDULE APPOINTMENT FOR TWO WEEKS WHEN OFFICE IS OPEN. Patient Instructions: DIRECTED Wound/Incision Care: DIRECTED Durable Medical Equipment: NONE Notify Physician If: DIRECTED New Scripts Called to Pharmacy: SCRIPTS TO BE GIVEN TO SISTER OF THE FOB. Condition at time of discharge: Good Care Plan Discharge Patient: Goal: Understand discharge plan Patient Instructions: see patient instructions Problem: see problem list Goal: Understand discharge plan Patient Instructions: see patient instructions 2.Severe pain, swelling, redness, or warmth in either of your legs. 3.During office hours, call [phone] 4. After hours, please call [facility] at [phone], and have the jig grinder set up operator page your Surgeon IN THE EVENT OF AN EMERGENCY, seek medical care at the nearest Emergency Room Condition at time of discharge: Good Care Plan Discharge Patient: Goal: Understand discharge plan Patient Instructions: see patient instructions Plan of Care Discharge Date 02/17/14 6:45pm Disposition 02 TO [facility] Condition at Discharge Improved Prescriptions See Medications Section Referrals KIZZY SOLIS MD Functional Status No functional status results. Allergies, Adverse Reactions, Alerts Allergen Type Severity Reaction Status Last Updated No Known Drug Allergies Allergy Unknown Active 02/05/14 Immunizations Name Given Type Hx Influenza Vaccination Y JUN 2013 Historical Hx Pneumococcal Vaccination Y 2010(states 2-3 years ago) Historical Hx Influenza Vaccination Y JUN 2013 Historical Vital Signs Acute Vital Signs Vital Response Date/Time Temperature (Fahrenheit) 97.1 deg F (96.8 - 99.1) Temperature (Calculated Celsius) 36.72523 degrees C (36.0 - 37.3) Temperature Source Temporal Pulse Rate (adult) 67 bpm (60 - 100) Respiratory Rate 18 breaths/min (10 - 20) O2 Sat by Pulse Oximetry 90 % (90 - 100) Blood Pressure 102/57 mm Hg Blood Pressure Source Automatic Cuff Height 5 ft 7 in Weight 365 lb Body Mass Index 57.0 kg/m^2 Results Test Source Date Result Interp. Ref. Range Comments Acetone Level October 01, 2009 3:20pm Negative - Activated Partial Thromboplast Time July 11, 2013 7:07pm 31.9 SEC N 24-36 Alanine Aminotransferase (ALT/SGPT) March 29, 2014 8:39am 22 U/L N 21-72 COMMENT SCU WILL CALL Albumin March 29, 2014 8:39am 3.8 G/DL N 3.5-5.0 COMMENT SCU WILL CALL Albumin/Globulin Ratio March 29, 2014 8:39am 1.0 RATIO L 1.1-2.2 COMMENT SCU WILL CALL Alkaline Phosphatase March 29, 2014 8:39am 100 U/L N 38-126 COMMENT SCU WILL CALL Anion Gap March 29, 2014 8:39am 9 MEQ/L N 5-15 COMMENT SCU WILL CALL Anisocytosis February 09, 2014 4:25am 1+ - Arterial Blood Base Excess February 08, 2014 9:35pm 2.2 MMOL/L H -2.0-2.0 Arterial Blood HCO3 February 08, 2014 9:35pm 30 MEQ/L H 22-26 Arterial Blood Oxygen Content March 03, 2013 10:10am 15 - Arterial Blood Oxygen Saturation February 08, 2014 9:35pm 95.0 % N 95.0-98.0 Arterial Blood Partial Pressure CO2 February 08, 2014 9:35pm 59 MMHG H 34-45 Arterial Blood Total CO2 February 08, 2014 9:35pm 31.5 MEQ/L H 23-27 Arterial Blood pH February 08, 2014 9:35pm 7.310 L 7.350-7.450 Arterial Blood pO2 at Patient Temp February 08, 2014 9:35pm 82 MMHG N 80-100 Aspartate Amino Transf (AST/SGOT) March 29, 2014 8:39am 23 U/L N 17-59 COMMENT SCU WILL CALL B-Type Natriuretic Peptide February 03, 2011 9:30am 28 PG/ML N 15-100 BUN/Creatinine Ratio March 29, 2014 8:39am 20 RATIO N 6-26 COMMENT SCU WILL CALL Band Neutrophils # February 09, 2014 4:25am 1.2 T/MM3 - Band Neutrophils % February 09, 2014 4:25am 6.0 % N 0-6 Basophils # (Auto) March 29, 2014 8:39am 0.1 T/MM3 N 0-0.2 COMMENT SCU WILL CALL Basophils # (Manual) July 23, 2013 4:50am 0.0 T/MM3 N 0-0.2 Basophils % (Manual) July 23, 2013 4:50am 0.0 % N 0-2 Basophils (%) (Auto) March 29, 2014 8:39am 0.6 % N 0-2 COMMENT SCU WILL CALL Blood Gas Oxygen Percent Given February 08, 2014 9:35pm 100 - Blood Gas Oxygen Saturation October 03, [...] 6:02am Not Performed 0-30 Blood Urea Nitrogen March 29, 2014 8:39am 24.0 MG/DL H 9-20 COMMENT SCU WILL CALL C. difficile Toxin B Gene (PCR) June 19, 2010 8:58pm Negative - If Toxin A is clinically indicated, treat accordingly. Calcium Level March 29, 2014 8:39am 9.1 MG/DL N 8.4-10.2 COMMENT SCU WILL CALL Calculated Osmolality March 29, 2014 8:39am 275 MOSM/KG N 261-280 COMMENT SCU WILL CALL Carbon Dioxide Level March 29, 2014 8:39am 34 MEQ/L H 22-30 COMMENT SCU WILL CALL Chemistry Specimen Hemolysis March 29, 2014 8:39am < 15 0-25 0-25: No Hemolysis.26-70: Slight [...] decrease Phenytoin. Recommend specimen recollection. Chloride Level March 29, 2014 8:39am 98 MEQ/L N 98-107 COMMENT SCU WILL CALL Cholesterol Level June 13, 2010 5:15am 140 MG/DL N 132-199 Cholesterol/HDL Ratio June 13, 2010 5:15am 7.8 RATIO H 0-5.0 Conjugated Bilirubin October 23, 2011 3:20pm 0.00 MG/DL N 0.00-0.30 Creatine Kinase MB September 15, 2010 8:50am 0.8 NG/ML N 0-3.4 Creatinine March 29, 2014 8:39am 1.2 MG/DL N 0.8-1.5 COMMENT SCU WILL CALL D-Dimer July 11, 2013 7:06pm 721 NG/ML H 0-230 <224 NG/ML= PRESUMPTIVE NEGATIVE FOR PE OR DVT>224 NG/ML=ADDITIONAL EVALUATION FOR PE OR DVT RECOMMENDED Differential Total Cells Counted January 29, 2011 5:30am 100 % - EKG October 01, 2009 3:15pm Complete - Eosinophils # (Auto) March 29, 2014 8:39am 0.5 T/MM3 N 0-0.5 COMMENT SCU WILL CALL Eosinophils # (Manual) July 23, 2013 4:50am 0.0 T/MM3 N 0-0.5 Eosinophils % (Manual) July 23, 2013 4:50am 0.0 % N 0-4 Eosinophils (%) (Auto) March 29, 2014 8:39am 4.2 % H 0-4 COMMENT SCU WILL CALL Ferritin February 05, 2014 7:56pm 13.8 NG/ML L 18-464 COMMENT may use blood in lab Free Thyroxine October 23, 2011 3:20pm 1.12 NG/DL N 0.78-2.19 Free Triiodothyronine October 01, 2009 3:20pm 0.81 PG/ML L 2.77-5.27 Globulin March 29, 2014 8:39am 3.8 G/DL H 2.4-3.6 COMMENT SCU WILL CALL Glomerular Filtration Rate Calc March 29, 2014 8:39am 61 - COMMENT SCU WILL CALL Glucometer February 17, 2014 5:20pm 131 mg/dL H 75-110 Glucose Level March 29, 2014 8:39am 100 MG/DL N 75-110 COMMENT SCU WILL CALL HDL Cholesterol Direct June 13, 2010 5:15am 18 MG/DL L 40-60 Hematocrit March 29, 2014 8:39am 38.9 % L 41-53 COMMENT SCU WILL CALL Hemoglobin March 29, 2014 8:39am 12.0 GM/DL L 13.5-17.5 COMMENT SCU WILL CALL Hemoglobin A1c July 12, 2013 5:45am 5.8 % DL 6-7 <6.0 NON-DIABETIC RANGE6.0-7.0 ADA THERAPEUTIC RANGE >7.0 ACTION SUGGESTED Hypochromasia February 09, 2014 4:25am 1+ - Icterus Index March 29, 2014 8:39am < 2 0-7 COMMENT SCU WILL CALL Immature Granulocyte # (Auto) March 29, 2014 8:39am 0.10 T/MM3 H 0.00- 0.03 COMMENT SCU WILL CALL Immature Granulocyte % (Auto) March 29, 2014 8:39am 0.8 % H 0.0-0.5 COMMENT SCU WILL CALL Influenza Type A Antigen July 11, 2013 [...] 98.0 N 66-159 Lab Scanned Report March 04, 2013 9:51am LAB RESULTS - SCANNED [id number] - Lactic Acid Level October 02, 2009 4:40am Send out - Large Platelets July 21, 2013 5:05am Many - Lipase February 05, 2014 7:56pm 81 U/L N 23-300 Lymphocytes # (Auto) March 29, 2014 8:39am 4.2 T/MM3 N 1-4.8 COMMENT SCU WILL CALL Lymphocytes # (Manual) February 09, 2014 4:25am 0.6 T/MM3 L 1-4.8 Lymphocytes % (Manual) February 09, 2014 4:25am 3.0 % L 23-45 Lymphocytes (%) (Auto) March 29, 2014 8:39am 34.7 % N 23-45 COMMENT SCU WILL CALL Magnesium Level February 13, 2014 5:05am 1.4 MG/DL L 1.6-2.3 Mean Corpuscular Hemoglobin March 29, 2014 8:39am 24.9 UUG L 26-34 COMMENT SCU WILL CALL Mean Corpuscular Hemoglobin Concent March 29, 2014 8:39am 30.8 GM/DL L 31 -37 COMMENT SCU WILL CALL Mean Corpuscular Volume March 29, 2014 8:39am 80.7 UM3 N 80-100 COMMENT SCU WILL CALL Mean Platelet Volume March 29, 2014 8:39am 10.5 UM3 N 9.4-12.4 COMMENT SCU WILL CALL Metamyelocytes # September 13, 2010 5:44pm 0.1 T/MM3 - Metamyelocytes % September 13, 2010 5:44pm 1.0 % H 0-0 Microcytosis July 21, 2013 5:05am 1+ - Monocytes # (Auto) March 29, 2014 8:39am 1.0 T/MM3 H 0-0.8 COMMENT SCU WILL CALL Monocytes # (Manual) February 09, 2014 4:25am 1.4 T/MM3 H 0-0.8 Monocytes % (Manual) February 09, 2014 4:25am 7.0 % N 0-9.0 Monocytes (%) (Auto) March 29, 2014 8:39am 8.2 % N 0-9.0 COMMENT SCU WILL CALL Myelocytes # July 21, 2013 5:05am 0.1 T/MM3 - Myelocytes % July 21, 2013 5:05am 1.0 % H 0-0 Myoglobin October 05, 2009 4:40am 130.6 NG/ML H 0-121 DV-Bbn-H-Type Natriuretic Peptide July 11, 2013 7:07pm 6160 PG/ML H 0 -175 Rule in cut points: <50 years old=450; 50-75 years old=900; >75 years old=1800; When utilizing ProBNP rule-in cut points, adjustment for impaired renal function is typically not required. Neutrophils # (Auto) March 29, 2014 8:39am 6.2 T/MM3 N 1.8-7.7 COMMENT SCU WILL CALL Neutrophils # (Manual) February 09, 2014 4:25am 16.6 T/MM3 H 1.8-7.7 Neutrophils % (Manual) February 09, 2014 4:25am 84.0 % H 33-66 Neutrophils (%) (Auto) March 29, 2014 8:39am 51.5 % N 33-66 COMMENT SCU WILL CALL Nucleated Red Blood Cells January 29, 2011 5:30am 2 - Oxygen Delivery Method (LAB) February 08, 2014 9:35pm Bpap, % - Phosphorus Level February 17, 2013 2:07pm 2.9 MG/DL N 2.5-4.5 RANDOM COLLECTION Platelet Count March 29, 2014 8:39am 357 T/MM3 N 130-400 COMMENT SCU WILL CALL Poikilocytosis September 13, 2010 5:44pm 4+ - Potassium Level March 29, 2014 8:39am 4.5 MEQ/L N 3.6-5 COMMENT SCU WILL CALL Prealbumin February 05, 2014 7:56pm 10.0 MG/DL L 17.6-36.0 COMMENT may use blood in lab Procalcitonin July 12, 2013 5:45am 0.07 NG/ML - PCT </=0.5 ng/mL - sepsis not likely;PCT >0.5 and </=2 ng/mL - sepsis possible; PCT >2 ng/mL - sepsis likely; PCT >/=10 ng/mL - systemic inflammatory response - sepsis or septic shock highly indicated. Prothromb Time International Ratio July 11, 2013 7:07pm 1.35 H 0.86- 1.10 THERAPUTIC RANGE=2.00-3.00 FOR ANTI-THROMBOSIS THERAPUTIC RANGE=2.50- 3.50 FOR IMPLANTED VALVE RDW Standard Deviation March 29, 2014 8:39am 58.4 FL H 36.9-50.2 COMMENT SCU WILL CALL Reactive Lymphocytes # July 24, 2013 4:30am 0.3 T/MM3 H 0-0 Reactive Lymphocytes % July 24, 2013 4:30am 2.0 % H 0-0 Red Blood Count March 29, 2014 8:39am 4.82 M/MM3 N 4.50-5.90 COMMENT SCU WILL CALL Sodium Level March 29, 2014 8:39am 141 MEQ/L N 134-144 COMMENT SCU WILL CALL Stomatocytes September 13, 2010 5:44pm 4+ - Stool Occult Blood September 22, 2010 8:45pm Negative - Has specimen been collected/obtained? Y Tests Not Done March 07, 2009 7:54pm Not done - COMMENT DO C&S IF INDICATEDHas specimen been collected/obtained? Y Thyroid Stimulating Hormone (TSH) February 05, 2014 7:56pm 1.98 MIU/L N 0.47- 4.68 COMMENT may use blood in lab Total Bilirubin March 29, 2014 8:39am 0.20 MG/DL N 0.20-1.30 COMMENT SCU WILL CALL Total Creatine Kinase October 11, 2009 6:00am 143 U/L N 55-170 Total Protein March 29, 2014 8:39am 7.6 G/DL N 6.3-8.2 COMMENT SCU WILL CALL Total Triiodothyronine October 30, 2008 3:10pm 0.62 NG/ML L 0.97-1.69 Triglycerides Level June 13, 2010 5:15am 120 MG/DL N 40-160 Troponin I July 12, 2013 5:45am 0.126 ng/ml PH 0-0.12 Turbidity March 29, 2014 8:39am < 20 0-20 COMMENT SCU WILL CALL U Collection Dur (Immunofixation) February 17, 2013 2:07pm Random Hr - Protein electrophoresis, Urine performed at [facility] Lab, [facility] [address], [place] [address] Resource Forester Bj Ware MD U Collection Volume (Immunofixation February 17, 2013 2:07pm Random mL - Unconjugated Bilirubin October 23, 2011 3:20pm 0.00 MG/DL N 0.00-1.10 Urinalysis Comment July 12, 2013 6:09pm Microscopic not ind. - Has specimen been collected/obtained? Y Urine Albumin (%) February 17, 2013 2:07pm 45.8 % - Urine [id number] February 17, 2013 2:07pm 4.5 % - Urine Sbsfk-6-Iiemblffz February 17, 2013 2:07pm 12.3 % - Urine Amorphous Phosphates October 01, 2009 3:45pm Many - Has specimen been collected/obtained? Y Urine Amorphous Urates February 06, 2014 5:04am Few - Has specimen been collected/obtained? Y Urine Bacteria February 06, 2014 5:04am None seen - Has specimen been collected/obtained? Y Urine Beta Globulin February 17, 2013 2:07pm 7.2 % - Urine Bilirubin February 06, 2014 5:04am Negative - Has specimen been collected/obtained? Y Urine Blood February 06, 2014 5:04am 1+ H - Has specimen been collected/ obtained? Y Urine Calcium Oxalate Crystals March 03, 2013 2:48pm Many - Has specimen been collected/obtained? Y Urine Collection Type February 06, 2014 5:04am Not Performed - Urine Color February 06, 2014 5:04am Yellow - Has specimen been collected/ obtained? Y Urine Comment February 17, 2013 2:07pm see below - Mild non-selective proteinuria. Urine Culture Indicated March 03, 2013 2:48pm Cult reflexed &setup - Has specimen been collected/obtained? Y Urine Fine Granular Casts October 01, 2009 3:45pm 1-3 /LPF - Has specimen been collected/obtained? Y Urine Gamma Globulin February 17, 2013 2:07pm 30.2 % - Urine Glucose (UA) February 06, 2014 5:04am Negative - Has specimen been collected/obtained? Y Urine Hyaline Casts March 03, 2013 2:48pm 0-1 /LPF - Has specimen been collected/obtained? Y Urine Ketones February 06, 2014 5:04am Negative - Has specimen been collected/obtained? Y Urine Leukocyte Esterase February 06, 2014 5:04am Negative - Has specimen been collected/obtained? Y Urine Microscopic Not Indicated October 24, 2011 2:10am Not indicated - Has specimen been collected/obtained? Y Urine Mucus February 17, 2013 2:07pm Present - Urine Myoglobin October 02, 2009 12:45pm Send out - Has specimen been collected/obtained? YWhat is the Source? [place] Urine Nitrite February 06, 2014 5:04am Negative - Has specimen been collected/obtained? Y Urine Protein February 06, 2014 5:04am Negative - Has specimen been collected/obtained? Y Urine RBC February 06, 2014 5:04am 1-3 /HPF - Has specimen been collected/ obtained? Y Urine Specific [place] February 06, 2014 5:04am 1.015 - Has specimen been collected/obtained? Y Urine Squamous Epithelial Cells February 17, 2013 2:07pm Few - Urine Total Protein February 17, 2013 2:07pm 36 mg/dL H - Protein electrophoresis, Urine performed at [facility] Lab, [address] [place] [address] Resource Forester Bj Ware MD Urine Total Protein Timed February 17, 2013 2:07pm Na mg/24hrs - Value may increase up to 300mg/24hour following exercise.Reported as mg/hrs collected , reference range is based on 24 hr collection. Urine Triple Phosphate Crystals March 03, 2013 2:48pm Many - Has specimen been collected/obtained? Y Urine Turbidity February 06, 2014 5:04am Clear - Has specimen been collected/obtained? Y Urine Uric Acid Crystals March 03, 2013 2:48pm Not Performed - Urine Urobilinogen February 06, 2014 5:04am 0.2 EU/DL - Has specimen been collected/obtained? Y Urine WBC March 03, 2013 2:48pm 3-5 /HPF - Has specimen been collected /obtained? Y Urine WBC Clumps March 03, 2013 2:48pm Few - Has specimen been collected/obtained? Y Urine Waxy Casts March 03, 2013 2:48pm 0-1 /LPF - Has specimen been collected/obtained? Y Urine pH February 06, 2014 5:04am 6.0 - Has specimen been collected/ obtained? Y [...] or Percent) ROOM AIR Venous Blood Lactate July 11, 2013 7:07pm 1.7 MMOL/L N 0.6-2.2 Venous Blood Oxygen Content [...] use blood in lab White Blood Count March 29, 2014 8:39am 12.0 T/MM3 H 4.5-11.0 COMMENT SCU WILL CALL Blood Culture Blood July 11, 2013 7:07pm NO GROWTH AFTER 5 DAYS Gram Stain Drainage-Other January 28, 2011 10:00am Gram Stain Tracheostomy Tube March 03, 2013 10:35am Gram Stain Sputum-Expectorated Sputum July 11, 2013 10:00pm Urine Culture Urine, [place] March 03, 2013 3:24pm Gram Stain Skin March 03, 2013 11:41am Procedures Procedure Status Date Provider(s) Insertion of vascular catheter completed 03/29/14 SRAVANTHI BURGESS MD, FACS , CWS Encounters Encounter Location Date/Time Discharged Inpatient [facility] 02/05/14 8:40pm
--- OUTSIDE RECORDS SUMMARY | 2017-02-10 16:24 | XMS REPORT | Continuity of Care Document ---
Author Author [facility] Organization [facility] Address Unknown Phone Unavailable Support Name Relationship Address Phone VANE SON MD Caregiver [facility] [address] [place] [address] Unavailable KIZZY SOLIS MD Caregiver [address] [place] [phone] DESIREE LACKEY Next Of Kin [address] [place] [address] CP Insurance Providers Payer Name Policy Number Subscriber Name Relationship Medicareadvantra Ppo [id number] Preethi Lackey 19 Self Advance Directives Directive [...] bleed Unknown Active Abdominal pain Unknown Active Medications Medication Dose Route Sig [...] No 03/25/2014 2:04pm Hx Substance Use No 04/08/2014 11:13pm Hx Alcohol Use No 04/08/2014 11:13pm Has the pt used tobacco in the last 12 months No 03/29/2014 8:52am Query Response Start Date Stop Date Smoking Status Former smoker Hospital Discharge Instructions Instructions: Care Plan Discharge Patient: Goal: Understand discharge plan Patient Instructions: see patient instructions Condition at time of discharge: Good Care Plan Discharge Patient: Goal: Lab within normal limits Patient Instructions: see patient instructions Discharge Patient: Goal: Other Patient Instructions: see patient instructions 1.Take your anticoagulant (Aspirin, Coumadin, Lovenox,etc) as directed Driving 1.May drive in 4 weeks if you had your LEFT extremity operated on. 2.May drive in 6 weeks if you had your RIGHT extremity operated on. Wound/Incision Care: Tegaderm 1.Clear dressing is to remain in place for 2 weeks. 2.Do not pick at it or scrub it while showering. 3.If the dressing begins to pull up, secure it with 4x4 gauze pad and tape. 4.You may shower; however, do not submerge yourself in water until the incision is completely healed. Mepilex 1.Dressing to remain in place until your follow up appointment. 2.If this dressing starts peeling up slightly, [...] of your legs. 3.During office hours, call [phone] 4. After hours, please call [facility] at [phone], and have the steel wool machine operator page your Surgeon IN THE EVENT OF AN EMERGENCY, seek medical care at the nearest Emergency Room New Scripts Called to Pharmacy: OXYCONTIN 10 MG BY MOUTH EVERY 12 HOURS #20. ROXICODONE 5MG TABLET 5-15MG BY MOUTH EVERY THREE HOURS NEEDED FOR BREAKTHROUGH PAIN #60. THERAGRAN-H MULTIVITAMIN 1 TABLET BY MOUTH DAILY #60. Condition at time of discharge: Good Care Plan Discharge Patient: Goal: Maximum functional status Patient Instructions: see patient instructions Care Plan Discharge Patient: Goal: Maximum functional status Patient Instructions: see patient instructions Plan of Care Discharge Date 02/17/14 6:45pm Disposition 02 TO [facility] Condition at Discharge Improved Prescriptions See Medications Section Referrals KIZZY SOLIS MD Functional Status Query Response Date Recorded Physical Hygiene Self April 08, 2014 11:13pm Disabilities Visual April 08, 2014 11:13pm Devices Used Glasses April 08, 2014 11:13pm Dressing Self April 08, 2014 11:13pm Ambulation Self April 08, 2014 11:13pm Diet Self April 08, 2014 11:13pm Mental Status Alert April 09, 2014 3:14am Disabilities Visual April 08, 2014 11:13pm Devices Used Glasses April 08, 2014 11:13pm Physical Hygiene Self April 08, 2014 11:13pm Dressing Self April 08, 2014 11:13pm Ambulation Self April 08, 2014 11:13pm Diet Self April 08, 2014 11:13pm Allergies, Adverse Reactions, Alerts Allergen Type Severity Reaction Status Last Updated No Known Drug Allergies Allergy Unknown Active 04/08/14 Immunizations Name Given Type Hx Influenza Vaccination Y JUN 2013 Historical Hx Pneumococcal Vaccination Y 2010(states 2-3 years ago) Historical Hx Influenza Vaccination Y JUN 2013 Historical Vital Signs Acute Vital Signs Vital Response Date/Time Temperature (Fahrenheit) 97.1 deg F (96.8 - 99.1) Temperature (Calculated Celsius) 36.49512 degrees C (36.0 - 37.3) Temperature Source Temporal Pulse Rate (adult) 79 bpm (60 - 100) Respiratory Rate 22 breaths/min (10 - 20) O2 Sat by Pulse Oximetry 91 % (90 - 100) Oxygen Flow Rate 6 L/min Fraction of Inspired Oxygen (FIO2) 70 % Blood Pressure 123/52 mm Hg Height 5 ft 8 in Weight 368 lb Body Mass Index 55.0 kg/m^2 Results Test Source Date Result Interp. Ref. Range Comments Acetone Level October 01, 2009 3:20pm Negative - Activated Partial Thromboplast Time July 11, 2013 7:07pm 31.9 SEC N 24-36 Alanine Aminotransferase (ALT/SGPT) April 09, 2014 12:00am 23 U/L N 21- 72 Albumin April 09, 2014 12:00am 3.6 G/DL N 3.5-5.0 Albumin/Globulin Ratio April 09, 2014 12:00am 1.0 RATIO L 1.1-2.2 Alkaline Phosphatase April 09, 2014 12:00am 74 U/L N 38-126 Anion Gap April 09, 2014 12:00am 8 MEQ/L N 5-15 Anisocytosis February 09, 2014 [...] February 08, 2014 9:35pm 7.310 L 7.350-7.450 Aspartate Amino Transf (AST/SGOT) April 09, 2014 12:00am 21 U/L N 17-59 B-Type Natriuretic Peptide February 03, 2011 9:30am 28 PG/ML N 15-100 BUN/Creatinine Ratio April 09, 2014 12:00am 24 RATIO N 6-26 Band Neutrophils # February 09, 2014 4:25am [...] COMMENT SCU WILL CALL Blood Gas Oxygen Saturation October 03, 2009 [...] Not Performed 0-30 Blood Urea Nitrogen April 09, 2014 12:00am 36.0 MG/DL H 9-20 Calcium Level April 09, 2014 12:00am 8.1 MG/DL L 8.4-10.2 Calculated Osmolality April 09, 2014 12:00am 277 MOSM/KG N 261-280 Carbon Dioxide Level April 09, 2014 12:00am 35 MEQ/L H 22-30 Carcinoembryonic Antigen March 29, 2014 8:39am 1.73 UG/L N 0-3.0 ADD-ON TESTING FROM THIS MORNING/[facility] Chloride Level April 09, 2014 12:00am 96 MEQ/L L 98-107 Cholesterol Level June 13, 2010 5:15am 140 MG/DL N 132-199 Cholesterol/HDL Ratio June 13, 2010 5:15am 7.8 RATIO H 0-5.0 Conjugated Bilirubin October 23, 2011 3:20pm 0.00 MG/DL N 0.00-0.30 Creatine Kinase MB September 15, 2010 8:50am 0.8 NG/ML N 0-3.4 Creatinine April 09, 2014 12:00am 1.5 MG/DL N 0.8-1.5 D-Dimer July 11, 2013 7:06pm 721 NG/ML H 0-230 <224 NG/ML= PRESUMPTIVE NEGATIVE FOR PE OR DVT>224 NG/ML=ADDITIONAL EVALUATION FOR PE OR DVT RECOMMENDED Differential Total Cells Counted January 29, 2011 5:30am 100 % - Eosinophils # (Auto) March 29, 2014 [...] 2009 3:20pm 0.81 PG/ML L 2.77-5.27 Globulin April 09, 2014 12:00am 3.6 G/DL N 2.4-3.6 Glucose Level April 09, 2014 12:00am 113 MG/DL H 75-110 Hematocrit April 09, 2014 12:00am 38.3 % L 41-53 Hemoglobin April 09, 2014 12:00am 11.8 GM/DL L 13.5-17.5 Hemoglobin A1c July 12, 2013 5:45am 5.8 % DL 6-7 <6.0 NON-DIABETIC RANGE6.0-7.0 ADA THERAPEUTIC RANGE >7.0 ACTION SUGGESTED Hypochromasia February 09, 2014 4:25am 1+ - Influenza Type A Antigen July 11, [...] June 13, 2010 5:15am 98.0 N 66-159 Lactic Acid Level October 02, 2009 4:40am Send out - Large Platelets July 21, 2013 5:05am Many - Lipase April 09, 2014 12:00am 59 U/L N 23-300 Lymphocytes # (Auto) March 29, 2014 8:39am 4.2 T/MM3 N 1-4.8 COMMENT SCU WILL CALL Lymphocytes # (Manual) April 09, 2014 12:00am 2.0 T/MM3 N 1-4.8 Lymphocytes % (Manual) April 09, 2014 12:00am 12.0 % L 23-45 Lymphocytes (%) (Auto) March 29, 2014 8:39am 34.7 % N 23-45 COMMENT SCU WILL CALL Magnesium Level February 13, 2014 5:05am 1.4 MG/DL L 1.6-2.3 Mean Corpuscular Hemoglobin April 09, 2014 12:00am 24.8 UUG L 26-34 Mean Corpuscular Hemoglobin Concent April 09, 2014 12:00am 30.8 GM/DL L 31-37 Mean Corpuscular Volume April 09, 2014 12:00am 80.6 UM3 N 80-100 Mean Platelet Volume April 09, 2014 12:00am 10.2 UM3 N 9.4-12.4 Metamyelocytes # September 13, 2010 5:44pm 0.1 [...] 05, 2009 4:40am 130.6 NG/ML H 0-121 Neutrophils # (Auto) March 29, 2014 8:39am 6.2 T/MM3 N 1.8-7.7 COMMENT SCU WILL CALL Neutrophils # (Manual) April 09, 2014 12:00am 14.6 T/MM3 H 1.8-7.7 Neutrophils % (Manual) April 09, 2014 12:00am 88.0 % H 33-66 Neutrophils (%) (Auto) March 29, 2014 8:39am 51.5 % N 33-66 COMMENT SCU WILL CALL Nucleated Red Blood Cells January 29, 2011 5:30am 2 - Phosphorus Level February 17, 2013 2:07pm 2.9 MG/DL N 2.5-4.5 RANDOM COLLECTION Platelet Count April 09, 2014 12:00am 276 T/MM3 N 130-400 Poikilocytosis September 13, 2010 5:44pm 4+ - Potassium Level April 09, 2014 12:00am 5.5 MEQ/L H 3.6-5 Prealbumin February 05, 2014 7:56pm 10.0 MG/DL L 17.6-36.0 COMMENT may use blood in lab Prothromb Time International Ratio July 11, 2013 7:07pm 1.35 H 0.86- 1.10 THERAPUTIC RANGE=2.00-3.00 FOR ANTI-THROMBOSIS THERAPUTIC RANGE=2.50- 3.50 FOR IMPLANTED VALVE RDW Standard Deviation April 09, 2014 12:00am 54.3 FL H 36.9-50.2 Red Blood Count April 09, 2014 12:00am 4.75 M/MM3 N 4.50-5.90 Sodium Level April 09, 2014 12:00am 139 MEQ/L N 134-144 Stomatocytes September 13, 2010 [...] may use blood in lab Total Bilirubin April 09, 2014 12:00am 0.20 MG/DL N 0.20-1.30 Total Creatine Kinase October 11, 2009 6:00am 143 U/L N 55-170 Total Protein April 09, 2014 12:00am 7.2 G/DL N 6.3-8.2 Total Triiodothyronine October 30, 2008 3:10pm 0.62 NG/ML L 0.97-1.69 Triglycerides Level June 13, 2010 5:15am 120 MG/DL N 40-160 Troponin I July 12, 2013 5:45am 0.126 ng/ml PH 0-0.12 Unconjugated Bilirubin October 23, 2011 3:20pm 0.00 MG/DL N 0.00-1.10 Urine Albumin (%) February 17, 2013 2:07pm 45.8 % - Urine Htbdx-9-Whhsghra February 17, 2013 2:07pm 4.5 % - Urine Srdpy-2-Yjpxlhrjs February 17, 2013 2:07pm 12.3 % - Urine Amorphous Phosphates October 01, 2009 3:45pm Many - Has specimen been collected/obtained? Y Urine Amorphous Urates February 06, 2014 5:04am Few - Has specimen been collected/obtained? Y Urine Bacteria February 06, 2014 5:04am None seen - Has specimen been collected/obtained? Y Urine Beta Globulin February 17, 2013 2:07pm 7.2 % - Urine Bilirubin April 09, 2014 2:20am Negative - Has specimen been collected/obtained? Y Urine Blood April 09, 2014 2:20am Negative - Has specimen been collected/obtained? Y Urine Calcium Oxalate Crystals March 03, 2013 2:48pm Many - Has specimen been collected/obtained? Y Urine Collection Type April 09, 2014 2:20am Straight cath - Has specimen been collected/obtained? Y Urine Color April 09, 2014 2:20am Yellow - Has specimen been collected /obtained? [...] 30.2 % - Urine Glucose (UA) April 09, 2014 2:20am Negative - Has specimen been collected/obtained? Y Urine Hyaline Casts March 03, 2013 2:48pm 0-1 /LPF - Has specimen been collected/obtained? Y Urine Ketones April 09, 2014 2:20am Negative - Has specimen been collected/obtained? Y Urine Leukocyte Esterase April 09, 2014 2:20am Negative - Has specimen been collected/obtained? Y Urine Mucus February 17, 2013 2:07pm Present - Urine Myoglobin October 02, 2009 12:45pm Send out - Has specimen been collected/obtained? YWhat is the Source? [place] Urine Nitrite April 09, 2014 2:20am Negative - Has specimen been collected/obtained? Y Urine Protein April 09, 2014 2:20am Negative - Has specimen been collected/obtained? Y Urine RBC February 06, 2014 5:04am 1-3 /HPF - Has specimen been collected/ obtained? Y Urine Specific [place] April 09, 2014 2:20am 1.020 - Has specimen been collected/obtained? Y Urine Squamous Epithelial Cells February 17, 2013 2:07pm Few - Urine Total Protein February 17, 2013 2:07pm 36 mg/dL H - Protein electrophoresis, Urine performed at [facility] Reference Lab, [facility] [place] [address] Tour Narrator Bj Ware MD Urine Total Protein Timed February 17, 2013 2:07pm Na mg/24hrs - Value may increase up to 300mg/24hour following exercise.Reported as mg/hrs collected , reference range is based on 24 hr collection. Urine Triple Phosphate Crystals March 03, 2013 2:48pm Many - Has specimen been collected/obtained? Y Urine Turbidity April 09, 2014 2:20am Clear - Has specimen been collected/obtained? Y Urine Uric Acid Crystals March 03, 2013 2:48pm Not Performed - Urine Urobilinogen April 09, 2014 2:20am 0.2 EU/DL - Has specimen been collected/obtained? Y Urine WBC March 03, 2013 2:48pm 3-5 /HPF - Has specimen been collected /obtained? Y Urine WBC Clumps March 03, 2013 2:48pm Few - Has specimen been collected/obtained? Y Urine Waxy Casts March 03, 2013 2:48pm 0-1 /LPF - Has specimen been collected/obtained? Y Urine pH April 09, 2014 2:20am 6.5 - Has specimen been collected/ obtained? Y [...] (Liters or Percent) ROOM AIR Venous Blood Oxygen Content October 01, 2009 [...] blood in lab White Blood Count April 09, 2014 12:00am 16.6 T/MM3 H 4.5-11.0 Chemistry Specimen Hemolysis April 09, 2014 12:00am < 15 0-25 0-25: No Hemolysis.26-70: Slight [...] can falsely decrease Phenytoin. Recommend specimen recollection. Oxygen Delivery Method (LAB) February 08, 2014 9:35pm Bpap, % - Urinalysis Comment April 09, 2014 2:20am Microscopic not ind. - Has specimen been collected/obtained? Y Glucometer March 29, 2014 12:37pm 105 mg/dL N 75-110 Lab Scanned Report March 29, 2014 6:57pm LAB TEST FORM REQUEST [id number] - EKG October 01, 2009 3:15pm Complete - HDL Cholesterol Direct June 13, 2010 5:15am 18 MG/DL L 40-60 Turbidity April 09, 2014 12:00am < 20 0-20 Reactive Lymphocytes % July 24, 2013 4:30am 2.0 % H 0-0 Glomerular Filtration Rate Calc April 09, 2014 12:00am 47 - Reactive Lymphocytes # July 24, 2013 4:30am 0.3 T/MM3 H 0-0 Immature Granulocyte # (Auto) March 29, 2014 8:39am 0.10 T/MM3 H 0.00- 0.03 COMMENT SCU WILL CALL Immature Granulocyte % (Auto) March 29, 2014 8:39am 0.8 % H 0.0-0.5 COMMENT SCU WILL CALL Arterial Blood pO2 at Patient Temp February 08, 2014 9:35pm 82 MMHG N 80-100 Venous Blood Lactate July 11, 2013 7:07pm 1.7 MMOL/L N 0.6-2.2 Procalcitonin July 12, 2013 5:45am 0.07 NG/ML - PCT </=0.5 ng/mL - sepsis not likely;PCT >0.5 and </=2 ng/mL - sepsis possible; PCT >2 ng/mL - sepsis likely; PCT >/=10 ng/mL - systemic inflammatory response - sepsis or septic shock highly indicated. Icterus Index April 09, 2014 12:00am < 2 0-7 KM-Hoi-V-Type Natriuretic Peptide July 11, 2013 7:07pm 6160 PG/ML H 0 -175 Rule in cut points: <50 years old=450; 50-75 years old=900; >75 years old=1800; When utilizing ProBNP rule-in cut points, adjustment for impaired renal function is typically not required. Urine Microscopic Not Indicated October 24, 2011 2:10am Not indicated - Has specimen been collected/obtained? Y C. difficile Toxin B Gene (PCR) June 19, 2010 8:58pm Negative - If Toxin A is clinically indicated, treat accordingly. Blood Gas Oxygen Percent Given February 08, 2014 9:35pm 100 - U Collection Volume (Immunofixation February 17, 2013 2:07pm Random mL - U Collection Dur (Immunofixation) February 17, 2013 2:07pm Random Hr - Protein electrophoresis, Urine performed at [facility] Reference Lab, [address] [place] [address] Tour Narrator Bj Ware MD Blood Culture Blood July 11, 2013 7:07pm NO GROWTH AFTER 5 DAYS Gram Stain Drainage-Other January 28, 2011 10:00am Gram Stain Tracheostomy Tube March 03, 2013 10:35am Gram Stain Sputum-Expectorated Sputum July 11, 2013 10:00pm Urine Culture Urine, [place] March 03, 2013 3:24pm Gram Stain Skin March 03, 2013 11:41am Procedures Procedure Status Date Provider(s) INSERT TUNNELED CV CATH completed 03/29/14 SRAVANTHI BURGESS MD, FACS, CWS Encounters Encounter Location Date/Time Departed Emergency Room [facility] 04/08/14 10:19pm Registered Clinic [facility] 03/29/14 2:43pm Discharged Inpatient [facility] 02/05/14 8:40pm Recent Diagnosis
--- NOTE | 2017-02-10 16:47 | ERPDOC ---
Departure Disposition Decision Date: February 10, 2017 Disposition Decision Time: 18:17 Disposition: 02 TO [facility] Impression Impression Impression: Primary Impression: Acute kidney injury Additional Impression: Hyperkalemia Severity: Critical Condition: Critical Seen By: Mid-level only Referrals: ARMEN EMERSON MD (Family) Problems/Meds/Labs Reviewed?: Yes Medications reviewed and manag: Yes Follow up care ordered?: Yes Mental Status: Alert Critical Care Note Critical Care Spent: Fxlt-ll-yhgb care of pt, Reviewing test results, Discuss the case w/staff, Documenting the MR, Discussion w/ family/DPOA During this visit the pt was: Critically Ill, At Risk of Deterioration, At Risk of HPI - General Medical General Chief Complaint: General Stated Complaint: LOSS OF APPETITE Time Seen by Provider: 16:47 Source: patient HPI - General Medical Initial Comments 66 YO presents to ED with complaint of generalized weakness and decreased appetite for past 2 days. Says today he was so weak he was unable to get out of bed. Patient ambulates with a walker. Reports that he has had low BP in the 80s- 90s today. Patient denies fever, chills, cough, SOA, nausea, vomiting, abdominal pain, dysuria. Daughter who is a nurse accompanies patient says patient lives with her brother who told her that patient has only eaten a few bites of food the last 2 days. Patient has a ileostomy and says he is having liquid stool in ostomy bag. Patient denies any pain. Arrival BP 143/88. Associated Symptoms: malaise, weakness (genreralized weakness), DENIES: chest pain, cough, diaphoresis, fever/chills, loss of appetite, nausea/vomiting, seizure, shortness of breath, syncope Allergies: Coded Allergies: No Known Drug Allergies (Verified Allergy, Unknown, 02/10/17) Past History Past Medical History Metabolic: cancer (colon), diabetes, hypercholesterolemia, hypertension, hypothyroidism, other (pickwickian syndrome) ENMT: sleep apnea, vision problems Cardiac: CAD, CHF, CA Respiratory: COPD, other (chronic respiratory failure), pneumonia, pulmonary embolus, pulmonary hypertension GI: other (colon CA) Male: renal failure, renal insufficiency Neurological: neuropathy Musculoskeletal: back pain Integumentary: rashes Hematologic: anemia Psychological: depression Surgical History General: exploratory laparotomy, other (colectomy with ileostomy) Cardiac: cardiac cath, cardiac stent Reproductive/: other (vasectomy) Family History Family PMH: FOUND: CA, hypertension Vaccines Hx Influenza Vaccination: No Hx Pneumococcal Vaccination: Yes (FALL 2010) Hx Tetanus Diptheria: No Hx Tetanus, Diptheria, Pertuss: No Social History # of Packs/Tins per Day: 2 # of Years: 30 Household Members: children Review of Systems Constitutional Constitutional: appetite decrease, weakness (realize), DENIES: chills, dizziness, fever Eyes General: DENIES: erythema, exudate Lids/Accessories: DENIES: erythema, swelling Vision: blurring ENMT Ears: DENIES: pain Sinuses: DENIES: congestion, rhinorrhea Mouth/Throat: DENIES: sore throat Cardiovascular Cardiac: DENIES: chest pain, murmur Rhythm/Rate: DENIES: palpitations Pulmonary Respiratory: cough (chronic), dyspnea GI Upper Abdomen: DENIES: nausea, pain, vomiting Lower Abdomen: DENIES: diarrhea, pain General: DENIES: dysuria, pain Musculoskeletal General: DENIES: joint pain, pain, tenderness Integumentary Skin: DENIES: color change, itching, rash Neurological General: DENIES: ataxia, change in strength, numbness, paralysis/paresis, weakness Psychiatric Psychiatric: depression, DENIES: anxiety, nervousness Physical Exam General General Nourishment: well nourished, well developed, no acute distress, adult, obese General Body Habitus: disheveled Vitals and Pain First Documented Vital Signs Date Time Temp Pulse Resp B/P Pulse Ox O2 Delivery O2 Flow Rate FiO2 02/10/17 16:19 96.7 61 22 143/88 96 Room Air Weight: Kilograms: Height (feet): 5 Height (inches): 4.00 Triage Pain Scale: Eyes (brief) Eyes Brief: found: EOMI ENMT (brief) ENMT Brief: NOT FOUND: mucosa moist (dry), nasal exudate, nasal swelling Neck (brief) Neck: FOUND: other (erythematous macular papular moist rash around trachea follow foul odor ), trachea midline Respiratory Inspection: NOT FOUND: accessory muscle use, increased effort Auscultation: FOUND: other (course in bases bilt. clear in upper lobes bilt) Cardiovascular (brief) Cardiac: FOUND: regular rate, regular rhythm Abdomen (brief) Abdominal Brief: FOUND: bowel normo active x4, soft, NOT FOUND: tender Musculoskeletal (brief) Musculoskeletal Brief: NOT FOUND: deformity, loss of motion Integumentary (brief) Integumentary Brief: FOUND: dry, other (pale), warm Neurologic (brief) Neurological Brief: FOUND: motor-no gross deficits, sensory-no gross deficits Psychiatric (brief) Psychiatric Brief: FOUND: alert, oriented Differential Diagnoses Considering: Hypo/Hyperglycemia, Hypo/Hyperkalemia, Hypo/Hypernatremia, Metabolic Progress Results/Orders Orders Procedure Category Date Status Time Cbc W/Auto LAB 02/10/17 Complete Diff-Reflex Manual Cmp - Comprehensive LAB 02/10/17 Complete Metabolic Orthostatic Bp/Pulse EDM 02/10/17 Transmitted 16:55 Tsh - Thyroid Stim LAB 02/10/17 Complete Hormone Iv Lock (Ed Only) EDM 02/10/17 Transmitted 16:59 Normal Saline (Normal PHA 02/10/17 Complete Saline Iv) 17:45 EKG EKG 02/10/17 Taken Calcium Gluconate PHA 02/10/17 Complete (Calcium Gluconate) 18:15 Insulin Regular PHA 02/10/17 Complete (Novolin R) 18:15 Dextrose 50% Pfs PHA 02/10/17 Complete (D50w) 18:15 Normal Saline (Normal PHA 02/10/17 Complete Saline Iv) 19:00 Lab Results Laboratory Tests Test 02/10/17 17:15 White Blood Count 12.0T/MM3 Red Blood Count 2.97M/MM3 Hemoglobin 8.8GM/DL Hematocrit 25.7% Mean Corpuscular Volume 86.5UM3 Mean Corpuscular Hemoglobin 29.6UUG Mean Corpuscular Hemoglobin Concent 34.2GM/DL RDW Standard Deviation 58.7FL Platelet Count 152T/MM3 Mean Platelet Volume 9.9UM3 Immature Granulocyte % (Auto) % Neutrophils (%) (Auto) % Lymphocytes (%) (Auto) % Monocytes (%) (Auto) % Eosinophils (%) (Auto) % Basophils (%) (Auto) % Absolute Immature Granulocyte (auto T/MM3 Absolute Neutrophils (auto) T/MM3 Absolute Lymphocytes (auto) T/MM3 Absolute Monocytes (auto) T/MM3 Absolute Eosinophils (auto) T/MM3 Absolute Basophils (auto) T/MM3 Neutrophils % (Manual) 78.0% Lymphocytes % (Manual) 16.0% Monocytes % (Manual) 4.0% Eosinophils % (Manual) 1.0% Metamyelocytes % 1.0% Absolute Neutrophils (Manual) 9.4T/MM3 Lymphocytes # (Manual) 1.9T/MM3 Monocytes # (Manual) 0.5T/MM3 Eosinophils # (Manual) 0.1T/MM3 Metamyelocytes # 0.1T/MM3 Nucleated Red Blood Cells 3 Polychromasia 1+ Anisocytosis 1+ Red Cell Morphology Comment Abnormal Turbidity < 20 Sodium Level 132MEQ/L Potassium Level 5.8MEQ/L Chloride Level 106MEQ/L Carbon Dioxide Level 10MEQ/L Anion Gap 16MEQ/L Blood Urea Nitrogen 64.0MG/DL Creatinine 8.3MG/DL Glomerular Filtration Rate Calc 7 BUN/Creatinine Ratio 8RATIO Glucose Level 94MG/DL Calculated Osmolality 273MOSM/KG Calcium Level 7.7MG/DL Total Bilirubin 0.60MG/DL Icterus Index < 2 Aspartate Amino Transf (AST/SGOT) 22U/L Alanine Aminotransferase (ALT/SGPT) 28U/L Alkaline Phosphatase 91U/L Total Protein 7.4G/DL Albumin 4.0G/DL Globulin 3.4G/DL Albumin/Globulin Ratio 1.2RATIO Thyroid Stimulating Hormone (TSH) 178.00MIU/L Chemistry Specimen Hemolysis < 15 Medications Current ED Medications Sodium Chloride (Normal Saline IV) 1,000 ml @ 0 mls/hr Q0M ONCE IV Last administered on 02/10/17 17:42; Start 02/10/17 at 17:45; Stop 02/10/17 at 17:46 ; Status DC Calcium Gluconate (Calcium Gluconate) 1,000 mg O ONCE IV Last administered on 02/10/17 18:40; Start 02/10/17 at 18:15; Stop 02/10/17 at 18:17; Status DC Insulin Human Regular (Novolin R) 10 unit O ONCE IV Last administered on 18:36; Start 02/10/17 at 18:15; Stop 02/10/17 at 18:17; Status DC Dextrose 50 ml 50 ml O ONCE IV Last administered on 02/10/17 18:37; Start at 18:15; Stop 02/10/17 at 18:17; Status DC Sodium Chloride (Normal Saline IV) 1,000 ml @ 200 mls/hr Q5H ONCE IV Last administered on 02/10/17t 18:45; Start 02/10/17 at 19:00; Stop 02/10/17 at 21:07 ; Status DC Progress Progress WBC 12.0 Hgb 8.8 NA 132 K 5.8 CO2 10 BUN 64 Creatinine 8.3 I discussed labs with patient and need for transfer. Patient says that he has seen Dr. Collins in the past but cannot tell provider when was last visit. Daughter says that patient has been at [place] before and that is where they would like him to go. Patient does not know when he last took levothyroxine. TSH 178 Patient reassess, remains stable. EKG EKG : Rate: <60 (57bbp) Rhythm: sinus [place]: normal QRS: RBBB (incomplete) Intervals: normal ST/T: non-specific changes Interpreted by: signing physician (Dr. Dunn) Consult/PCP Consult/PCP : Physician Contacted: Dr. Bar Time Called: 18:10 Type of discussion: Admit Discussion/PCP Discussion Details I discussed patient's HPI, past medical history, vital signs, exam findings, EKG , labs and treatment in the ER with Dr. Haile hospitalist at [facility]. Dr. Bar will accept patient to ICU at [facility]. ДМИТРИЙ JAY APRN February 10, 2017 16:47
--- NOTE | 2017-02-10 16:50 | NUR ---
SAAD,RODGER IN TO EXAMINE PATIENT
--- OUTSIDE RECORDS SUMMARY | 2017-02-10 17:00 | XMS REPORT | Continuity of Care Document ---
Author Author [facility] Organization [facility] Address Unknown Phone Unavailable Support Name Relationship Address Phone CHRISTIRUBY MENDOZA Caregiver [address] [place] [address] KIZZY WATKINS MD Caregiver [address] [facility] [address] [place] [phone] CHRISTINE CARTY MD Caregiver [address] [facility] [facility] [address] [address] DESIREE LACKEY Next Of Kin [address] [place] [address] CP Insurance Providers Payer Name Policy Number Subscriber Name Relationship Medicareadvantra Ppo [id number] Preethi Lackey 19 Self Advance Directives Directive [...] of your legs. 3.During office hours, call [phone] 4. After hours, please call [facility] at [phone], and have the supercalender operator page your Surgeon IN THE EVENT [...] F (96.8 - 99.1) Temperature (Calculated Celsius) 36.70050 degrees C (36.0 - 37.3) Temperature Source [...] UG/L N 0-3.0 ADD-ON TESTING FROM THIS MORNING/[facility] Chemistry Specimen Hemolysis April 30, 2014 5:00am [...] 04/23/14 0707 --- CWBC previously reported as: [id number] H T/MM3 4.5-11.0 Creatine Kinase MB September [...] 29, 2014 6:57pm LAB TEST FORM REQUEST [id number] - Lactic Acid Level October 02, 2009 [...] 05, 2009 4:40am 130.6 NG/ML H 0-121 QG-Glg-B-Type Natriuretic Peptide April 11, 2014 4:50am 1150 [...] Hr - Protein electrophoresis, Urine performed at [facility] Reference Lab, [address] [place] [address] Spinning Frame Cleaner Bj Ware MD U Collection Volume (Immunofixation February 17, 2013 2:07pm Random mL - Unconjugated Bilirubin October 23, 2011 3:20pm 0.00 MG/DL N 0.00-1.10 Urinalysis Comment April 10, 2014 4:40am Microscopic not ind. - Has specimen been collected/obtained? Y Urine Albumin (%) February 17, 2013 2:07pm 45.8 % - Urine Mhbhe-7-Xfcmupgy February 17, 2013 2:07pm 4.5 % - Urine Zjhcm-4-Ivzyhdufs February 17, 2013 2:07pm 12.3 % - [...] specimen been collected/ obtained? Y Urine Specific [place] April 10, 2014 4:40am 1.025 - Has specimen been collected/obtained? Y Urine Squamous Epithelial Cells February 17, 2013 2:07pm Few - Urine Total Protein February 17, 2013 2:07pm 36 mg/dL H - Protein electrophoresis, Urine performed at [facility] Reference Lab, [address] [place] [id number] Spinning Frame Cleaner Bj Ware MD Urine Total Protein Timed [...] 2013 11:41am Name: PREETHI LACKEY Unit #: [id number] : 1950 Sex: M Loc / Svc: MED DOS: 04/10/14 Signed Report #: [id number] DIAGNOSTIC IMAGING REPORT TYPE OF EXAM: CHEST [...] CWS Encounters Encounter Location Date/Time Discharged Inpatient [facility] 04/10/14 5:59am Departed Emergency Room [facility] 04/08/14 10:19pm Registered Clinic [facility] 03/29/14 2:43pm Discharged Inpatient [facility] 02/05/14 8:40pm Recent Diagnosis Hypoxia Sepsis [...]
--- OUTSIDE RECORDS SUMMARY | 2017-02-10 17:01 | XMS REPORT | Continuity of Care Document ---
Author Author [facility] Organization [facility] Address Unknown Phone Unavailable Allergies Active [...] Oral 20 mg 1 tabs, Oral, Daily HYDROcodone-acetaminophen(Kenefic 5 mg-325 mg oral tablet) 1 tabs [...] mg, Oral, q6hr, PRN: Nausea or Vomiting HYDROcodone-acetaminophen(Kenefic 5 mg-325 mg oral tablet) 1 tabs [...] IV 150 mL/hr, IV, Stop: 09/22/15 9:29:00 JAVA TECHNICAL ARCHITECT polyethylene glycol 3350(MiraLax) 1 packets 09/22/20152014 Oral [...] 2.5 g, 200 mL/hr, IV Piggyback, Once HYDROcodone-acetaminophen(Kenefic 5 mg-325 mg oral tablet) 1 tabs [...] IV 200 mL/hr, IV, Stop: 09/22/15 8:35:00 JAVA TECHNICAL ARCHITECT sterile water(sterile water diluent intravenous solution 850 [...] 2.5 mg=0.5 mL, NEB, TID, 0 Refill(s) HYDROcodone-acetaminophen(Kenefic 5 mg-325 mg oral tablet) 1 tabs [...] Vergara Final I25.10 Atherosclerotic heart disease of [place] coronary artery without angina pect 10/15/2015 Jackie Vregara Final I50.9 Heart failure, unspecified 10/15/2015 Jackie [...] Status Pt. Type Provider Facility Loc./Unit Complaint [id number] 12/17/2013 10:33:00 12/17/2013 23 :59:59 CLS Outpatient [id number] 12/03/2013 11:17:00 12/03/2013 23 :59:59 CLS Outpatient [id number] 11/16/2013 10:39:00 11/16/2013 23 :59:59 CLS Outpatient [id number] 09/01/2013 12:00:00 09/01/2013 23 :59:59 CLS Outpatient [id number] 08/31/2013 10:33:00 08/31/2013 23 :59:59 CLS Outpatient
--- OUTSIDE RECORDS SUMMARY | 2017-02-10 17:02 | XMS REPORT | Continuity of Care Document ---
Author Author [facility] Organization [facility] Address Unknown Phone Unavailable Support Name Relationship Address Phone BENJAMÍNESTELA RODRÍGUEZ Caregiver [address] [phone] RUBY TAVAREZ MD Caregiver [address] [place] [address] [place] [address] KIZZY SOLIS MD Caregiver [address] [place] [phone] DESIREE LACKEY Next Of Kin [address] [place] [address] CP Insurance Providers Payer Name Policy Number Subscriber Name Relationship Medicareadvantra Ppo [id number] Preethi Lackey 19 Self Advance Directives Directive [...] Disposition 01 DISCHARGED HOME, SELF-CARE Instructions/Education Provided [place] Congestive Heart Failure Prescriptions See Medications Section [...] F (96.8 - 99.1) Temperature (Calculated Celsius) 35.91853 degrees C (36.0 - 37.3) Temperature Source [...] UG/L N 0-3.0 ADD-ON TESTING FROM THIS MORNING/[facility] Chemistry Specimen Hemolysis August 21, 2014 4:53am [...] 04/23/14 0707 --- CWBC previously reported as: [id number] H T/MM3 4.5-11.0 Creatine Kinase MB September [...] 09, 2014 12:08pm LAB TEST FORM REQUEST [id number] - Lactate Dehydrogenase August 09, 2014 12:00am [...] 05, 2009 4:40am 130.6 NG/ML H 0-121 WV-Ycj-U-Type Natriuretic Peptide April 11, 2014 4:50am 1150 [...] Hr - Protein electrophoresis, Urine performed at [facility] Reference Lab, [address] [place] [address] Dual Rate Dealer Bj Ware MD U Collection Volume (Immunofixation February 17, 2013 2:07pm Random mL - Unconjugated Bilirubin October 23, 2011 3:20pm 0.00 MG/DL N 0.00-1.10 Urinalysis Comment April 10, 2014 4:40am Microscopic not ind. - Has specimen been collected/obtained? Y Urine Albumin (%) February 17, 2013 2:07pm 45.8 % - Urine Awozh-4-Iufussok February 17, 2013 2:07pm 4.5 % - Urine Xwkej-9-Psmxhgsou February 17, 2013 2:07pm 12.3 % - [...] Has specimen been collected/obtained? Y Urine Specific [place] August 16, 2014 1:15pm >=1.030 H - Has specimen been collected/obtained? Y Urine Squamous Epithelial Cells February 17, 2013 2:07pm Few - Urine Total Protein February 17, 2013 2:07pm 36 mg/dL H - Protein electrophoresis, Urine performed at [facility] Reference Lab, [facility] [place] [address] Dual Rate Dealer Bj Ware MD Urine Total Protein Timed [...] 2013 11:41am Name: PREETHI LACKEY Unit #: [id number] : 1950 Sex: M Loc / Svc: MED DOS: 08/16/14 Signed Report #: [id number] DIAGNOSTIC IMAGING REPORT TYPE OF EXAM: US [...] 08/09/14 Encounters Encounter Location Date/Time Discharged Inpatient [facility] 08/16/14 1:52pm Registered Clinic [facility] 08/09/14 9:42am Registered Clinic [facility] 07/26/14 10:53am Registered [facility] 06/07/14 8:52am Recent Diagnosis ANTIONETTE on CPAP Hypokalemia Intertriginous candidiasis Anemia of chronic disease Immunosuppression SIRS (systemic inflammatory response syndrome) Acute kidney injury CKD (chronic kidney disease), stage III Morbid obesity with BMI of 40.0-44.9, adult Hyponatremia Acute renal failure (ARF) Hyperphosphatemia Hypomagnesemia
--- OUTSIDE RECORDS SUMMARY | 2017-02-10 17:02 | XMS REPORT | Continuity of Care Document ---
Author Author [facility] Organization [facility] Address Unknown Phone Unavailable Support Name Relationship Address Phone KIZZY SOLIS MD Caregiver [address] [place] [address] [place] [phone] SRAVANTHI BURGESS FACS CWS Caregiver [address] [place] [address] [place] [phone] DESIREE LACKEY Next Of Kin [address] [place], [place] [id number] CP Insurance Providers Payer Name Policy Number Subscriber Name Relationship Medicareadvantra Ppo [id number] Preethi Lackey 19 Self Advance Directives Directive [...] of your legs. 3.During office hours, call [phone] 4. After hours, please call [facility] at [phone], and have the chemical etch operator page your Surgeon IN THE EVENT [...] F (96.8 - 99.1) Temperature (Calculated Celsius) 36.28206 degrees C (36.0 - 37.3) Temperature Source [...] 04, 2013 9:51am LAB RESULTS - SCANNED [id number] - Lactic Acid Level October 02, 2009 [...] 05, 2009 4:40am 130.6 NG/ML H 0-121 HC-Qka-F-Type Natriuretic Peptide July 11, 2013 7:07pm 6160 [...] Hr - Protein electrophoresis, Urine performed at [facility] Reference Lab, [facility] [address] [place], [place] [address] Cost Report Clerk Bj Ware MD U Collection Volume (Immunofixation February 17, 2013 2:07pm Random mL - Unconjugated Bilirubin October 23, 2011 3:20pm 0.00 MG/DL N 0.00-1.10 Urinalysis Comment July 12, 2013 6:09pm Microscopic not ind. - Has specimen been collected/obtained? Y Urine Albumin (%) February 17, 2013 2:07pm 45.8 % - Urine Dvjai-6-Mrqlmgok February 17, 2013 2:07pm 4.5 % - Urine Xsrow-6-Ggucvspod February 17, 2013 2:07pm 12.3 % - [...] specimen been collected/ obtained? Y Urine Specific [place] February 06, 2014 5:04am 1.015 - Has specimen been collected/obtained? Y Urine Squamous Epithelial Cells February 17, 2013 2:07pm Few - Urine Total Protein February 17, 2013 2:07pm 36 mg/dL H - Protein electrophoresis, Urine performed at [facility] Reference Lab, [address] [place] [address] Cost Report Clerk Bj Ware MD Urine Total Protein Timed [...] CWS Encounters Encounter Location Date/Time Discharged Inpatient [facility] 02/05/14 8:40pm
--- OUTSIDE RECORDS SUMMARY | 2017-02-10 17:02 | XMS REPORT | Continuity of Care Document ---
Author Author [facility] Organization [facility] Address Unknown Phone Unavailable Support Name Relationship Address Phone VANE SON MD Caregiver [facility] [address] [place] [address] Unavailable KIZZY SOLIS MD Caregiver [address] [place] [address] [phone] DESIREE LACKEY Next Of Kin [address] [place] [address] CP Insurance Providers Payer Name Policy Number Subscriber Name Relationship Medicareadvantra Ppo [id number] Preethi Lackey 19 Self Advance Directives Directive [...] of your legs. 3.During office hours, call [phone] 4. After hours, please call [facility] at [phone], and have the viner operator page your Surgeon IN THE EVENT [...] Discharge Date 02/17/14 6:45pm Disposition 02 TO [facility] Condition at Discharge Improved Prescriptions [...] F (96.8 - 99.1) Temperature (Calculated Celsius) 36.06922 degrees C (36.0 - 37.3) Temperature Source [...] UG/L N 0-3.0 ADD-ON TESTING FROM THIS MORNING/[facility] Chloride Level April 09, 2014 12:00am 96 [...] 17, 2013 2:07pm 45.8 % - Urine Sedgj-4-Tjelgipe February 17, 2013 2:07pm 4.5 % - Urine Dbmxj-0-Kptzgfnyv February 17, 2013 2:07pm 12.3 % - [...] specimen been collected/ obtained? Y Urine Specific [place] April 09, 2014 2:20am 1.020 - Has specimen been collected/obtained? Y Urine Squamous Epithelial Cells February 17, 2013 2:07pm Few - Urine Total Protein February 17, 2013 2:07pm 36 mg/dL H - Protein electrophoresis, Urine performed at [facility] Reference Lab, [facility] [place] [address] Racecourse Barrier Attendant Bj Ware MD Urine Total Protein Timed [...] 29, 2014 6:57pm LAB TEST FORM REQUEST [id number] - EKG October 01, 2009 3:15pm Complete [...] April 09, 2014 12:00am < 2 0-7 ZK-Vkg-I-Type Natriuretic Peptide July 11, 2013 7:07pm 6160 [...] Hr - Protein electrophoresis, Urine performed at [facility] Reference Lab, [address] [place] [address] Racecourse Barrier Attendant Bj Ware MD Blood Culture Blood July [...] Encounters Encounter Location Date/Time Departed Emergency Room [facility] 04/08/14 10:19pm Registered Clinic [facility] 03/29/14 2:43pm Discharged Inpatient [facility] 02/05/14 8:40pm Recent Diagnosis
--- NOTE | 2017-02-10 17:15 | NUR ---
PAC POWERPORT ACCESSED AT THIS TIME USING 20 GAUGE 1.5 IN NEEDLE. ABLE TO ASPIRATE BLOOD. SPECIMEN OBTAINED AND GIVEN TO LAB
[2017-02-10 17:19] LABS: HCT - HEMATOCRIT 25.7 % (41-53); HGB - HEMOGLOBIN 8.8 GM/DL (13.5-17.5); MEAN CORPUSCULAR HGB 29.6 UUG (26-34); MEAN CORPUSCULAR HGB CONC(MCHC 34.2 GM/DL (31-37); MEAN CORPUSCULAR VOLUME 86.5 UM3 (80-100); MEAN PLATELET VOLUME 9.9 UM3 (9.4-12.4); RED BLOOD COUNT 2.97 M/MM3 (4.50-5.90)
[2017-02-10 17:28] LABS: ANISOCYTOSIS 1+; EOSINOPHILS # (MANUAL) 0.1 T/MM3 (0-0.5); LYMPHOCYTES # (MANUAL) 1.9 T/MM3 (1-4.8); METAMYELOCYTES # 0.1 T/MM3; MONOCYTES # (MANUAL) 0.5 T/MM3 (0-0.8); NEUTROPHILS #(MANUAL)-ABSOLUTE 9.4 T/MM3 (1.8-7.7); NUCLEATED RED BLOOD CELLS 3; TOTAL CELLS COUNTED 100 %
[2017-02-10 17:29] LABS: ALBUMIN/GLOBULIN RATIO 1.2 RATIO (1.1-2.2); ALKALINE PHOSPHATASE 91 U/L (38-126); ALT (SGPT) 28 U/L (21-72); ANION GAP 16 MEQ/L (5-15); AST (SGOT) 22 U/L (17-59); BUN/CREATININE RATIO 8 RATIO (6-26); CALCIUM 7.7 MG/DL (8.4-10.2); CHLORIDE 106 MEQ/L (98-107); CO2 - CARBON DIOXIDE 10 MEQ/L (22-30); CREATININE 8.3 MG/DL (0.8-1.5); GLOMERULAR FILTRATION RATE 7; GLUCOSE 94 MG/DL (75-110); POLYCHROMASIA 1+; POTASSIUM 5.8 MEQ/L (3.6-5); SODIUM 132 MEQ/L (134-144); TOTAL PROTEIN 7.4 G/DL (6.3-8.2)
[2017-02-10] MEDS ORDERED: NORMAL SALINE 1,000 ML IV ONE ×2 (17:45→19:00)
--- NOTE | 2017-02-10 17:46 | NUR ---
EKG OBTAINED AND RESULTS GIVEN TO RODGER NASH
[2017-02-10] MEDS ORDERED: DEXTROSE 50% SYRINGE 50ml (Eq. 1 AMP) IV ONE (18:15)
[2017-02-10] MEDS ORDERED: CALCIUM GLUCONATE 1000mg/10ml INJECTION IV ONE (18:15)
[2017-02-10] MEDS ORDERED: INSULIN REGULAR 100 UNIT/ML IV ONE (18:15)
--- NOTE | 2017-02-10 18:15 | NUR ---
report recieved report from diego dowd
--- NOTE | 2017-02-10 19:10 | NUR ---
report called report to diego gil at [facility] [place] icu
--- NOTE | 2017-02-10 19:15 | NUR ---
911 called dispatch for ems transfer
[2017-02-10 19:30] VITALS: BP 98/57; PULSE 65; RESP 22; TEMP 96.7; O2SAT 91
--- NOTE | 2017-02-10 19:30 | NUR ---
depart ems is given report, pt leaves via ems cart. transfer complete
== END 2017-02-10 19:30 | disposition short-term general hospital (02) ==
LOC: ED 16:17
DX: N17.9 Acute kidney failure, unspecified (principal); E87.5 Hyperkalemia
CPT/HCPCS: 80053; 84443; 85025; 93005; 96361; 96374; 96375; 99285; A9270; J0610; J7030